=== PATIENT | male | born 1945 | race African-American/Black ===

== ENCOUNTER 2019-02-24 18:56 | Inpatient (IN) | payer OTHER ==
[~2019-02-24] VITALS: Ht 172.7 cm; Wt 70.8 kg
[2019-02-24] MEDS ORDERED: INSU100V8 SQ (19:36)
[2019-02-24] MEDS ORDERED: TAMS0.4C97 PO (19:36)
[2019-02-24] MEDS ORDERED: TRAZ-125 PO (19:36)
[2019-02-24] MEDS ORDERED: DONE10TA14 PO (19:36)
[2019-02-24] MEDS ORDERED: SERT100T PO (19:36)
[2019-02-24] MEDS ORDERED: SENN8.6T88 PO (19:36)
[2019-02-24] MEDS ORDERED: OLAN5TAB9 PO (19:36)
[2019-02-24] MEDS ORDERED: INSU100C4 SQ (19:36)
[2019-02-24] MEDS ORDERED: ENOX40DI SQ (19:36)
[2019-02-24] MEDS ORDERED: FINA5TAB4 PO (19:36)
[2019-02-24] MEDS ORDERED: HALO5TAB PO (19:36)
[2019-02-24] MEDS ORDERED: METO-239 PO (19:36)
[2019-02-24] MEDS ORDERED: DOCU50LI PO (19:36)
[2019-02-24] MEDS ORDERED: METHYL SALICYLATE/MENTHOL TOPICAL OINTMENT 57GM TUBE. TP PRN (19:45)
[2019-02-24] MEDS ORDERED: DEXTROSE 50% 25 GM / 50ML DISP.SYRIN. IV PRN (19:45)
[2019-02-24] MEDS ORDERED: MAG HYDROX/AL HYDROX/SIMETH 30 ML ORAL.SUSP PO PRN (19:45)
[2019-02-24] MEDS ORDERED: ACETAMINOPHEN 325 MG TABLET PO PRN (19:45)
[2019-02-24] MEDS ORDERED: MAGNESIUM HYDROXIDE 2,400 MG/30 ML ORAL.SUSP. PO PRN (19:45)
[2019-02-24 21:14] LABS: BASO % 1 % (0-3); EOS # 0.3 x10^3/uL (0.0-0.7); EOS % 4 % (0-3); HEMATOCRIT 34.3 % (39.0-53.0); HEMOGLOBIN 11.1 g/dL (13.0-17.5); LYMPH # 1.8 x10^3/uL (1.0-4.8); LYMPH % 25 % (24-48); MEAN CORPUSCULAR HEMOGLOBIN 29 pg (25-35); MEAN CORPUSCULAR HGB CONC 33 g/dL (31-37); MEAN CORPUSCULAR VOLUME 89 fL (79-100); MONO # 0.6 x10^3/uL (0.0-1.1); MONO % 8 % (0-9); NEUT # 4.7 x10^3uL (1.8-7.7); NEUT % 63 % (31-73); PLATELET COUNT 218 x10^3/uL (140-400); RED BLOOD COUNT 3.86 x10^6/uL (4.30-5.70); RED CELL DISTRIBUTION WIDTH 13.7 % (11.5-14.5); WHITE BLOOD COUNT 7.4 x10^3/uL (4.0-11.0)
[2019-02-24 21:35] LABS: ALBUMIN 2.8 g/dL (3.4-5.0); ALBUMIN/GLOBULIN RATIO 0.6 (1.0-1.7); CALCIUM 9.1 mg/dL (8.5-10.1); CREATININE 1.6 mg/dL (0.7-1.3); GFR 51.5; MAGNESIUM 1.8 mg/dL (1.8-2.4); POTASSIUM 4.3 mmol/L (3.5-5.1); TOTAL BILIRUBIN 0.2 mg/dL (0.2-1.0); TOTAL PROTEIN 7.4 g/dL (6.4-8.2)
[2019-02-24] MEDS: traZODone 100 MG TABLET. PO SCH (21:35)
[2019-02-24] MEDS: DONEPEZIL HCL 10 MG TABLET PO SCH (21:36)
[2019-02-24] MEDS: TAMSULOSIN 0.4 MG CAP.ER.24H. PO SCH (21:36)
[2019-02-24] MEDS: OLANZapine 5 MG TABLET PO SCH (21:36)
[2019-02-24] MEDS: ENOXAPARIN 40 MG/0.4 ML SYRINGE. SQ SCH (21:36)
--- NOTE | 2019-02-24 22:14 | EKG ---
[address] [address] Test Date: 2019-02-24 Test Time: 22:50:44 Pat Name: POONAM JOHNS Department: Room: [address] [place] [address] Gender: M [employer]: : 1945 Requested By: MAURA SCHWAB Order Number: [id number] Reading MD: Measurements Intervals [place] Rate: 71 P: 66 WV: 186 QRS: 44 QRSD: 84 T: 49 QT: 386 QTc: 420 Interpretive Statements SINUS RHYTHM NORMAL ECG RI6.02 No previous ECG available for comparison
--- NOTE | 2019-02-24 23:24 | PDOC ---
Exam Note: Shon Note: Please also refer to the separate dictated note~for this date of service dictated separately. Discussed the patient with Nursing staff reviewed the chart.~Reviewed interim history and current functioning. Reviewed vital signs,~Labs/ Radiology~and current medications noted below. Continue current treatment with the changes noted in the dictated addendum note Assessment: Labs: Laboratory Tests Test 02/24/19 19:24 02/24/19 20:45 Glucose (Fingerstick) 236 mg/dL (70-99) H White Blood Count 7.4 x10^3/uL (4.0-11.0) Red Blood Count 3.86 x10^6/uL (4.30-5.70) L Hemoglobin 11.1 g/dL (13.0-17.5) L Hematocrit 34.3 % (39.0-53.0) L Mean Corpuscular Volume 89 fL (79-100) Mean Corpuscular Hemoglobin 29 pg (25-35) Mean Corpuscular Hemoglobin Concent 33 g/dL (31-37) Red Cell Distribution Width 13.7 % (11.5-14.5) Platelet Count 218 x10^3/uL (140-400) Neutrophils (%) (Auto) 63 % (31-73) Lymphocytes (%) (Auto) 25 % (24-48) Monocytes (%) (Auto) 8 % (0-9) Eosinophils (%) (Auto) 4 % (0-3) H Basophils (%) (Auto) 1 % (0-3) Neutrophils # (Auto) 4.7 x10^3uL (1.8-7.7) Lymphocytes # (Auto) 1.8 x10^3/uL (1.0-4.8) Monocytes # (Auto) 0.6 x10^3/uL (0.0-1.1) Eosinophils # (Auto) 0.3 x10^3/uL (0.0-0.7) Basophils # (Auto) 0.0 x10^3/uL (0.0-0.2) Sodium Level 134 mmol/L (136-145) L Potassium Level 4.3 mmol/L (3.5-5.1) Chloride Level 100 mmol/L (98-107) Carbon Dioxide Level 29 mmol/L (21-32) Anion Gap 5 (6-14) L Blood Urea Nitrogen 28 mg/dL (8-26) H Creatinine 1.6 mg/dL (0.7-1.3) H Estimated GFR (Cockcroft-Gault) 51.5 BUN/Creatinine Ratio 18 (6-20) Glucose Level 360 mg/dL (70-99) H Calcium Level 9.1 mg/dL (8.5-10.1) Magnesium Level 1.8 mg/dL (1.8-2.4) Total Bilirubin 0.2 mg/dL (0.2-1.0) Aspartate Amino Transferase (AST) 17 U/L (15-37) Alanine Aminotransferase (ALT) 16 U/L (16-63) Alkaline Phosphatase 108 U/L (46-116) Total Protein 7.4 g/dL (6.4-8.2) Albumin 2.8 g/dL (3.4-5.0) L Albumin/Globulin Ratio 0.6 (1.0-1.7) L Current Medications: Meds: Current Medications Medications (Trade) Dose Ordered Sig/Deb Route PRN Reason Start Time Stop Time Status Last Admin Dose Admin Enoxaparin Sodium (Lovenox 40mg Syringe) 40 mg HS SQ 02/24/19 21:00 02/24/19 21:36 Olanzapine (ZyPREXA) 5 mg BID PO 02/24/19 21:00 02/24/19 21:36 Tamsulosin HCl (Flomax) 0.4 mg BID PO 02/24/19 21:00 02/24/19 21:36 Trazodone HCl (Desyrel) 100 mg HS PO 02/24/19 21:00 02/24/19 21:35 Donepezil HCl (Aricept) 10 mg HS PO 02/24/19 21:00 02/24/19 21:36 I have reviewed the current psychotropics carefully including drug interactions. Risk benefit ratio favors no change other than as noted in my dictated progress note. TYLOR MONACO MD Feb 24, 2019 23:24
[2019-02-25 00:59] VITALS: BP 144/83
[2019-02-25 06:09] VITALS: BP 160/81
[2019-02-25] MEDS: INSULIN LISPRO 300 UNITS/3 ML VIAL. SQ SCH ×3 (08:00→17:22)
[2019-02-25] MEDS ORDERED: FLU VAX QS 2019-20 (36MOS+)/PF 0.5 ML SYRINGE. VAX IM ONE (09:00)
[2019-02-25] MEDS: INSULIN GLARGINE SYRINGE. SQ SCH (09:12)
[2019-02-25] MEDS: NICOTINE 14MG PATCH. TD SCH (09:13)
[2019-02-25] MEDS: DOCUSATE 100 MG/10 ML SOLUTION. PO SCH (09:13)
[2019-02-25] MEDS: OLANZapine 5 MG TABLET PO SCH ×2 (09:14→20:16)
[2019-02-25] MEDS: TAMSULOSIN 0.4 MG CAP.ER.24H. PO SCH ×2 (09:14→20:16)
[2019-02-25] MEDS: SERTRALINE 100 MG TABLET. PO SCH (09:14)
[2019-02-25] MEDS: SENNOSIDES 8.6 MG TABLET PO SCH (09:15)
[2019-02-25] MEDS: METOPROLOL SUCC 24HR ER 25 MG TAB.ER.24H. PO SCH (09:15)
[2019-02-25] MEDS: FINASTERIDE 5 MG TABLET PO SCH (09:15)
[2019-02-25 14:33] LABS: BILIRUBIN,URINE NEG (NEG); CLARITY,URINE CLEAR; COLOR,URINE YELLOW; GLUCOSE,URINE 500 mg/dL (NEG)
[2019-02-25 14:34] LABS: BACTERIA,URINE 0 /HPF (0-FEW); NITRITE,URINE NEG (NEG); SQUAMOUS EPITHELIAL CELL,UR OCC /LPF; UROBILINOGEN,URINE 0.2 mg/dL (0.2 mg/dL); WBC,URINE OCC /HPF (0-4)
[2019-02-25] MEDS: HALOPERIDOL 5 MG TABLET PO PRN (15:59)
[2019-02-25 16:13] VITALS: BP 169/89
[2019-02-25 17:59] LABS: THYROXINE 6.2 ug/dL (4.5-12.0)
[2019-02-25 18:53] LABS: THYROID STIM HORMONE (TSH) 3.668 uIU/mL (0.358-3.740)
[2019-02-25] MEDS: ENOXAPARIN 40 MG/0.4 ML SYRINGE. SQ SCH (20:15)
[2019-02-25] MEDS: carBAMazepine 200 MG TABLET PO SCH (20:15)
[2019-02-25] MEDS: traZODone 100 MG TABLET. PO SCH (20:16)
[2019-02-25] MEDS: DONEPEZIL HCL 10 MG TABLET PO SCH (20:16)
--- NOTE | 2019-02-25 20:42 | PDOC ---
Exam Note: Shon Note: Please also refer to the separate dictated note~for this date of service dictated separately.~Patient seen individually. Discussed the patient with Nursing staff reviewed the chart.~Reviewed interim history and current functioning. Reviewed vital signs,~Labs/ Radiology~and current medications noted below. Continue current treatment with the changes noted in the dictated addendum note Assessment: Vital Signs/I&O: Vital Signs Date Time Temp Pulse Resp B/P (MAP) Pulse Ox O2 Delivery O2 Flow Rate FiO2 02/25/19 16:13 98.4 78 20 169/89 (115) 97 I & O 02/24/19 02/24/19 02/25/19 15:00 23:00 07:00 Intake Total 0 ml Balance 0 ml Labs: Laboratory Tests Test 02/24/19 20:45 02/25/19 07:46 02/25/19 12:02 02/25/19 13:45 White Blood Count 7.4 x10^3/uL (4.0-11.0) Red Blood Count 3.86 x10^6/uL (4.30-5.70) L Hemoglobin 11.1 g/dL (13.0-17.5) L Hematocrit 34.3 % (39.0-53.0) L Mean Corpuscular Volume 89 fL (79-100) Mean Corpuscular Hemoglobin 29 pg (25-35) Mean Corpuscular Hemoglobin Concent 33 g/dL (31-37) Red Cell Distribution Width 13.7 % (11.5-14.5) Platelet Count 218 x10^3/uL (140-400) Neutrophils (%) (Auto) 63 % (31-73) Lymphocytes (%) (Auto) 25 % (24-48) Monocytes (%) (Auto) 8 % (0-9) Eosinophils (%) (Auto) 4 % (0-3) H Basophils (%) (Auto) 1 % (0-3) Neutrophils # (Auto) 4.7 x10^3uL (1.8-7.7) Lymphocytes # (Auto) 1.8 x10^3/uL (1.0-4.8) Monocytes # (Auto) 0.6 x10^3/uL (0.0-1.1) Eosinophils # (Auto) 0.3 x10^3/uL (0.0-0.7) Basophils # (Auto) 0.0 x10^3/uL (0.0-0.2) Sodium Level 134 mmol/L (136-145) L Potassium Level 4.3 mmol/L (3.5-5.1) Chloride Level 100 mmol/L (98-107) Carbon Dioxide Level 29 mmol/L (21-32) Anion Gap 5 (6-14) L Blood Urea Nitrogen 28 mg/dL (8-26) H Creatinine 1.6 mg/dL (0.7-1.3) H Estimated GFR (Cockcroft-Gault) 51.5 BUN/Creatinine Ratio 18 (6-20) Glucose Level 360 mg/dL (70-99) H Calcium Level 9.1 mg/dL (8.5-10.1) Magnesium Level 1.8 mg/dL (1.8-2.4) Iron Level 59 ug/dL (65-175) L Total Iron Binding Capacity 268 ug/dL (250-450) Iron Saturation 22 % (15-34) Total Bilirubin 0.2 mg/dL (0.2-1.0) Aspartate Amino Transferase (AST) 17 U/L (15-37) Alanine Aminotransferase (ALT) 16 U/L (16-63) Alkaline Phosphatase 108 U/L (46-116) Total Protein 7.4 g/dL (6.4-8.2) Albumin 2.8 g/dL (3.4-5.0) L Albumin/Globulin Ratio 0.6 (1.0-1.7) L Triglycerides Level 150 mg/dL (0-150) Cholesterol Level 117 mg/dL (0-200) LDL Cholesterol, Calculated 51 mg/dL (0-100) VLDL Cholesterol, Calculated 30 mg/dL (0-40) Non-HDL Cholesterol Calculated 81 mg/dL (0-129) HDL Cholesterol 36 mg/dL (40-60) L Cholesterol/HDL Ratio 3.0 Vitamin B12 Level 600 pg/mL (247-911) 25-Hydroxy Vitamin D Total 37.9 ng/mL (30-100) Thyroid Stimulating Hormone (TSH) 3.668 uIU/mL (0.358-3.740) Thyroxine (T4) 6.2 ug/dL (4.5-12.0) Total Triiodothyronine (TT3) 97 ng/dL (71-180) Treponema pallidum Antibody Nonreactive (Nonreactive) Glucose (Fingerstick) 149 mg/dL (70-99) H 313 mg/dL (70-99) H Urine Collection Type Unknown Urine Color Yellow Urine Clarity Clear Urine pH 6.0 Urine Specific [place] 1.020 Urine Protein Trace (NEG-TRACE) Urine Glucose (UA) 500 mg/dL (NEG) Urine Ketones (Stick) Neg mg/dL (NEG) Urine Blood Neg (NEG) Urine Nitrite Neg (NEG) Urine Bilirubin Neg (NEG) Urine Urobilinogen Dipstick 0.2 mg/dL (0.2 mg/dL) Urine Leukocyte Esterase Neg (NEG) Urine RBC 1-2 /HPF (0-2) Urine WBC Occ /HPF (0-4) Urine Squamous Epithelial Cells Occ /LPF Urine Bacteria 0 /HPF (0-FEW) Test 02/25/19 17:18 02/25/19 19:10 Glucose (Fingerstick) 308 mg/dL (70-99) H 390 mg/dL (70-99) H Current Medications: Meds: Current Medications Medications (Trade) Dose Ordered Sig/Deb Route PRN Reason Start Time Stop Time Status Last Admin Dose Admin Docusate Sodium (Colace Solution) 50 mg DAILY PO 02/25/19 09:00 02/25/19 09:13 Enoxaparin Sodium (Lovenox 40mg Syringe) 40 mg HS SQ 02/24/19 21:00 02/25/19 20:15 Finasteride (Proscar) 5 mg DAILY PO 02/25/19 09:00 02/25/19 09:15 Insulin Glargine (Lantus Syringe) 10 unit DAILY SQ 02/25/19 09:00 02/25/19 09:12 Metoprolol Succinate (Toprol Xl) 12.5 mg DAILY PO 02/25/19 09:00 02/25/19 09:15 Olanzapine (ZyPREXA) 5 mg BID PO 02/24/19 21:00 02/25/19 20:16 Sennosides (Senna) 8.6 mg DAILY PO 02/25/19 09:00 02/25/19 09:15 Sertraline HCl (Zoloft) 200 mg DAILY PO 02/25/19 09:00 02/25/19 09:14 Tamsulosin HCl (Flomax) 0.4 mg BID PO 02/24/19 21:00 02/25/19 20:16 Trazodone HCl (Desyrel) 100 mg HS PO 02/24/19 21:00 02/25/19 20:16 Donepezil HCl (Aricept) 10 mg HS PO 02/24/19 21:00 02/25/19 20:16 Insulin Human Lispro (HumaLOG) 0-5 UNITS TIDWMEALS SQ 02/25/19 08:00 02/25/19 17:22 Nicotine (Nicoderm Cq 14mg) 1 patch DAILY TD 02/25/19 09:00 02/25/19 09:13 Influenza Virus Vaccine Quadrival (Afluria Quad 2019-20 (3yr Up) Syringe) 0.5 ml ONCE ONCE VAX IM 02/25/19 09:00 02/25/19 09:01 DC 02/25/19 09:18 Carbamazepine (TEGretol) 200 mg HS PO 02/25/19 21:00 02/25/19 20:15 I have reviewed the current psychotropics carefully including drug interactions. Risk benefit ratio favors no change other than as noted in my dictated progress note. TYLOR MONACO MD Feb 25, 2019 20:42
[2019-02-25] MEDS ORDERED: MIRTAZAPINE 7.5 MG TABLET. PO SCH (21:00)
[2019-02-26 01:06] LABS: HEMOGLOBIN A1C 13.2 % (4.8-5.6)
[2019-02-26 04:56] VITALS: BP 146/72
[2019-02-26] MEDS: INSULIN LISPRO 300 UNITS/3 ML VIAL. SQ SCH ×3 (08:00→17:00)
[2019-02-26] MEDS ORDERED: SERTRALINE 25 MG TABLET. PO SCH (09:00)
[2019-02-26] MEDS: TAMSULOSIN 0.4 MG CAP.ER.24H. PO SCH ×2 (09:27→19:55)
[2019-02-26] MEDS: SENNOSIDES 8.6 MG TABLET PO SCH (09:27)
[2019-02-26] MEDS: FINASTERIDE 5 MG TABLET PO SCH (09:27)
[2019-02-26] MEDS: DOCUSATE 100 MG/10 ML SOLUTION. PO SCH (09:27)
[2019-02-26] MEDS: METOPROLOL SUCC 24HR ER 25 MG TAB.ER.24H. PO SCH (09:27)
[2019-02-26] MEDS: SERTRALINE 100 MG TABLET. PO SCH (09:27)
[2019-02-26] MEDS: NICOTINE 14MG PATCH. TD SCH (09:28)
[2019-02-26] MEDS: OLANZapine 5 MG TABLET PO SCH ×2 (09:28→19:55)
[2019-02-26] MEDS: INSULIN GLARGINE SYRINGE. SQ SCH ×2 (09:32→19:59)
[2019-02-26 16:07] VITALS: BP 163/73
[2019-02-26] MEDS ORDERED: DEXTROSE 50% 25 GM / 50ML DISP.SYRIN. IV PRN (17:00)
[2019-02-26] MEDS ORDERED: INSULIN LISPRO 300 UNITS/3 ML VIAL. SQ ONE (17:15)
--- NOTE | 2019-02-26 17:54 | HP ---
ADMIT DATE: 02/24/2019 PSYCHIATRIC ADMISSION HISTORY/EVALUATION This late entry February 24 covers elements not covered in my initial note. I met with the patient evening of February 24. Discussed with nursing staff, reviewed the chart, previously discussed with Adelina Quarles, complaints coordinator. I had dictated admission note on the patient, admission history and psychiatric evaluation, but I am unable to track it in the electronic medical records and I am re-dictating it. IDENTIFYING DATA: The patient is a 73-year-old male who lives [facility] [place] and was referred to us by the [facility] in [place] on account of an exacerbation of his schizophrenia, chronic, undifferentiated type. He was delusional, grandiose, agitated, verbally aggressive, disruptive. He was unmanageable, had failed outpatient psychiatric interventions resulting in this referral. He resides at [facility] in [place]. CHIEF COMPLAINT: "I need to go home." HISTORY OF PRESENT ILLNESS: The patient has a long history of schizoaffective disorder, bipolar type versus schizophrenia. He has been residing at the [facility] and doing reasonably well until recently when he has become extremely psychotic, agitated, restless, verbally aggressive, disruptive. He has had sleep and appetite changes, has failed outpatient psychiatric interventions. No active suicidal or homicidal ideation. PAST PSYCHIATRIC HISTORY: As above. MEDICAL HISTORY: Chronic hepatitis C, inactive TB, hypertension, phimosis, hyperlipidemia, diabetes mellitus, COPD, anemia, chronic kidney disease, neurocognitive disorder. Diet is carb control. Takes medications whole. Ambulates with walker. UA on February 25 was negative. CODE STATUS: Full code. DRUG ALLERGIES: Negative. ACCU-CHEKS: a.c. and at bedtime. CURRENT PSYCHOTROPICS: Aricept 10 mg a day, Haldol 5 mg q. 4 hours p.r.n., Zyprexa 5 mg b.i.d., Zoloft 200 mg a day, trazodone 100 mg at bedtime for insomnia. FAMILY HISTORY: Noncontributory. SOCIAL HISTORY: No alcohol or drug abuse history will be inquired further. No physical, sexual or elder abuse history. He is not known to be a perpetrator. REACTION TO HOSPITALIZATION: The patient accepting of it. ASSETS: He has a guardian who facilitated this hospitalization via the [facility]. MENTAL STATUS EXAMINATION: The patient was seen individually evening of February 24, shortly after he arrived in the unit. He is oriented to himself and situation. Speech has some latency, coherent, often responses monosyllabic. Abstraction fair. Computation impaired. Language function intact. Attention span short. Mood and affect withdrawn. He is paranoid, suspicious, inattentive, distractible. LABORATORY DATA: Reviewed. IMPRESSION: Schizoaffective disorder, bipolar type, mixed with psychotic features, schizophrenia, chronic, undifferentiated with acute exacerbation with psychotic features; anxiety disorder, unspecified; mild cognitive impairment. Rest as above. PLAN: Admit to Geropsychiatry Unit at [facility]. I will see the patient daily individually from a psychiatric standpoint. Medical followup with Dr. Acevedo. We will avoid using Depakote as a mood stabilizer given his positive hepatitis C. We did consider lithium, but for now we will start Tegretol 200 mg p.o. at bedtime for 3 days. Check CBC, CMP, valproic acid level in 3 days. Start Zyprexa 2.5 mg q. 2 hours p.r.n. psychosis, agitation, max 20 mg in 24 hours. Consider [address]odon in place of Zyprexa depending on his progress. Rest unchanged for now. ESTIMATED LENGTH OF STAY: 10-12 days. DISPOSITION: Plan is back to [facility] when stable. MAN Maggy MONACO MD DR: CHERELLE/kiko JOB#: [id number] / [id number]
[2019-02-26] MEDS: DONEPEZIL HCL 10 MG TABLET PO SCH (19:55)
[2019-02-26] MEDS: traZODone 100 MG TABLET. PO SCH (19:55)
[2019-02-26] MEDS: carBAMazepine 200 MG TABLET PO SCH (19:55)
--- NOTE | 2019-02-26 21:33 | PDOC ---
Exam Note: Shon Note: Please also refer to the separate dictated note~for this date of service dictated separately.~Patient seen individually. Discussed the patient with Nursing staff reviewed the chart.~Reviewed interim history and current functioning. Reviewed vital signs,~Labs/ Radiology~and current medications noted below. Continue current treatment with the changes noted in the dictated addendum note Assessment: Vital Signs/I&O: Vital Signs Date Time Temp Pulse Resp B/P (MAP) Pulse Ox O2 Delivery O2 Flow Rate FiO2 02/26/19 16:07 97.9 74 16 163/73 (103) 99 Room Air I & O 02/25/19 02/25/19 02/26/19 15:00 23:00 07:00 Intake Total 720 ml 240 ml Balance 720 ml 240 ml Labs: Laboratory Tests Test 02/26/19 07:05 02/26/19 11:54 02/26/19 16:31 02/26/19 19:22 Glucose (Fingerstick) 270 mg/dL (70-99) H 444 mg/dL (70-99) H 507 mg/dL (70-99) *H 421 mg/dL (70-99) H Current Medications: Meds: Current Medications Medications (Trade) Dose Ordered Sig/Deb Route PRN Reason Start Time Stop Time Status Last Admin Dose Admin Insulin Glargine (Lantus Syringe) 20 unit BID SQ 02/26/19 21:00 02/26/19 19:59 Insulin Human Lispro (HumaLOG) 20 units 1X ONCE SQ 02/26/19 17:15 02/26/19 17:16 DC 02/26/19 17:41 I have reviewed the current psychotropics carefully including drug interactions. Risk benefit ratio favors no change other than as noted in my dictated progress note. Diagnosis: Problems: (1) Schizoaffective disorder, mixed type (2) Bipolar disorder with psychotic features (3) Chronic undifferentiated schizophrenia (4) Mild cognitive impairment (5) Anxiety disorder, unspecified TYLOR MONACO MD Feb 26, 2019 21:33
--- NOTE | 2019-02-26 22:59 | PN ---
DATE: 02/25/2019 This late entry 02/25/2019 covers elements not covered in my initial note. SUBJECTIVE: I met with the patient evening of 02/25/2019. The patient slept 9 hours previous night. He has appeared more lucid during the day, but previous evening, he was having active hallucinations, quite agitated after lunch. He is fixated, obsessed about being discharged and I addressed this with him at length during his visit in the evening in his room. REVIEW OF SYSTEMS: Positive for some tiredness. No CV, , pulmonary, eye system symptoms on review. MENTAL STATUS EXAM: Oriented to himself and situation. Speech has some latency, coherent. Abstraction fair, computation impaired, language function intact. Mood and affect remain somewhat withdrawn, labile. He remains paranoid, psychotic. He does have a guardian who has facilitated this hospitalization. IMPRESSION: Schizoaffective disorder, bipolar type, mixed with psychotic features. Rest unchanged. PLAN: Start Tegretol 200 mg at bedtime for 3 days, then check CBC, CMP, valproic acid level to reach therapeutic level. We are avoiding Depakote given his hepatitis C. We will maintain Aricept, Zoloft and trazodone for now along with Zyprexa 5 mg b.i.d., but we may consider changing this to Geodon depending on how he does. We will also add Zyprexa 2.5 mg q. 2 hours p.r.n. psychosis, agitation, max 20 mg in 24 hours. TYLOR MONACO MD DR: CHERELLE/kiko JOB#: [id number] / [id number]
--- NOTE | 2019-02-26 23:17 | CONS ---
DATE OF CONSULTATION: 02/26/2019 REASON FOR CONSULTATION: Medical management. HISTORY OF PRESENT ILLNESS: The patient is a 73-year-old -[place] male patient who was admitted from the [facility] on account of being delusional, grandiose, agitated, verbally aggressive, all this in a background of schizophrenia, unspecified with acute exacerbation. Medically, the patient is known to have chronic hepatitis C, hypertension, hyperlipidemia, type 2 diabetes, chronic obstructive pulmonary disease, anemia, depression, chronic kidney disease stage 3. He is also known to have phimosis and inactive tuberculosis. PAST SURGICAL HISTORY: Significant for tonsillectomy, according to the patient's account. ALLERGIES: He has no known drug allergies. MEDICATIONS: He is currently on following medications: He is on Aricept 10 mg at bedtime, tamsulosin or Flomax 0.4 mg twice a day, Lovenox 40 mg subcutaneously once a day, metoprolol succinate 12.5 mg daily, sertraline 200 mg at bedtime and trazodone 100 mg at bedtime, haloperidol 5 mg every 4 hours, olanzapine 5 mg twice a day, Colace 50 mg daily. He is on Senna 1 tablet once a day and he is on NovoLog insulin as insulin sliding scale. He also on Lantus 10 units subcutaneously daily. He is on finasteride 5 mg daily. SOCIAL HISTORY: Apparently he is , has 2 daughters and 2 sons. He continued to smoke, does not drink alcohol and currently retired. PHYSICAL EXAMINATION: GENERAL: When I examined him this afternoon, the patient was little pale and cachectic, but no jaundice, cyanosis. No lymphadenopathy, no thyromegaly. No jugular venous distention. No limb edema. VITAL SIGNS: Her heart rate was 74, blood pressure was 163/73, temperature was 97.9, respiratory rate was 16, and oxygen saturation was 99%. HEAD, EYES, EARS, NOSE AND THROAT: Showed normocephalic, atraumatic. NECK: Supple. HEART: Showed normal first and second heart sounds. No gallop, rub or murmur. CHEST: Shows central trachea, equally reduced expansion, reduced air entry, vesicular sounds. I could not really appreciate any crepitation or rhonchi. ABDOMEN: Slightly distended, soft, nontender. NEUROLOGIC: He was awake, alert, responding appropriately. All cranial nerves intact. EXTREMITIES: He moves extremities without difficulty, ambulates with a walker. LABORATORY DATA: This admission showed a white cell count 7400, hemoglobin 11, hematocrit 34, MCV 89 and platelet count of 218,000. His serum sodium was 134, potassium 4.3, chloride 100, bicarbonate 29, anion gap of 5, BUN 28, creatinine 1.6, estimated GFR was 51 mL per minute. Her glucose was 360, calcium was 9.1, magnesium was 1.8. Serum iron was 59, TIBC was 268. Iron saturation was 22. Total bilirubin, AST, ALT, alkaline phosphatase were normal. Total protein was 7.4, albumin was 2.8. Serum triglycerides was 150, total cholesterol was 117, LDL cholesterol was 51, the LDL was 30, HDL was 56 and the ratio was 3. His TSH, total T4 and total 3 are all within normal limits. His B12 was 600 pg/mL and 25-hydroxy vitamin D was normal at 37.9. His urinalysis was essentially unremarkable and his Treponema pallidum antibodies unreactive. His hemoglobin A1c was 13.2%. ASSESSMENT AND PLAN: In summary, this is a 73-year-old -[place]omin[place] male patient who was transferred to this facility from [facility] on account of being delusional, grandiose, agitated, verbally aggressive, all this in a background of schizophrenia with acute exacerbation. Medically, he clearly has poorly controlled type 2 diabetes mellitus with hemoglobin A1c of 13.2%. He has stage 3 chronic kidney disease. He has normochromic normocytic anemia, hypertension, hyperlipidemia as well as chronic hepatitis C, although his liver enzymes are well within normal range. My plan is obviously to adjust his insulin given that his blood sugar values were extremely high between 200-500 and therefore we increased his Lantus to 20 units twice a day and increase his insulin sliding scale before meals to the highest dose available. Once we have at least the 24-48 hours profile of his blood sugar we can start him on a fixed dose or scheduled insulin before meals. Other medical problems include benign prostatic hypertrophy for which he is on Flomax and finasteride. I am not sure why he is on Lovenox as he is ambulatory and there is nothing in the history to suggest that he has any deep vein thrombosis or pulmonary emboli. I would probably discontinue that. MAURA SCHWAB MD DR: Jaime JOB#: [id number] / [id number]
[2019-02-27 04:52] VITALS: BP 164/76
[2019-02-27] MEDS: FINASTERIDE 5 MG TABLET PO SCH (08:23)
[2019-02-27] MEDS: NICOTINE 14MG PATCH. TD SCH (08:23)
[2019-02-27] MEDS: SERTRALINE 100 MG TABLET. PO SCH (08:24)
[2019-02-27] MEDS: SENNOSIDES 8.6 MG TABLET PO SCH (08:24)
[2019-02-27] MEDS: TAMSULOSIN 0.4 MG CAP.ER.24H. PO SCH ×2 (08:24→20:01)
[2019-02-27] MEDS: OLANZapine 5 MG TABLET PO SCH ×2 (08:24→20:01)
[2019-02-27] MEDS: METOPROLOL SUCC 24HR ER 25 MG TAB.ER.24H. PO SCH (08:25)
[2019-02-27] MEDS: DOCUSATE 100 MG/10 ML SOLUTION. PO SCH (08:25)
[2019-02-27] MEDS: INSULIN LISPRO 300 UNITS/3 ML VIAL. SQ SCH ×3 (08:28→17:14)
[2019-02-27] MEDS: INSULIN GLARGINE SYRINGE. SQ SCH ×2 (08:30→20:00)
[2019-02-27] MEDS ORDERED: INSULIN GLARGINE SYRINGE. SQ SCH ×2 (09:00→16:45)
[2019-02-27] MEDS ORDERED: INSULIN LISPRO 300 UNITS/3 ML VIAL. SQ ONE (12:15)
[2019-02-27] MEDS: OLANZapine 2.5 MG TABLET PO PRN (14:33)
[2019-02-27 16:09] VITALS: BP 148/69
[2019-02-27] MEDS: traZODone 100 MG TABLET. PO SCH (20:01)
[2019-02-27] MEDS: carBAMazepine 200 MG TABLET PO SCH (20:01)
[2019-02-27] MEDS: DONEPEZIL HCL 10 MG TABLET PO SCH (20:01)
--- NOTE | 2019-02-27 21:28 | PDOC ---
Exam Note: Shon Note: Please also refer to the separate dictated note~for this date of service dictated separately.~Patient seen individually. Discussed the patient with Nursing staff reviewed the chart.~Reviewed interim history and current functioning. Reviewed vital signs,~Labs/ Radiology~and current medications noted below. Continue current treatment with the changes noted in the dictated addendum note Assessment: Vital Signs/I&O: Vital Signs Date Time Temp Pulse Resp B/P (MAP) Pulse Ox O2 Delivery O2 Flow Rate FiO2 02/27/19 16:09 97.5 89 16 148/69 (95) 96 02/26/19 16:07 Room Air I & O 02/26/19 02/26/19 02/27/19 14:59 22:59 06:59 Intake Total 600 ml 240 ml 240 ml Balance 600 ml 240 ml 240 ml Labs: Laboratory Tests Test 02/27/19 07:20 02/27/19 11:18 02/27/19 16:20 02/27/19 19:34 Glucose (Fingerstick) 205 mg/dL (70-99) H 371 mg/dL (70-99) H 403 mg/dL (70-99) H 204 mg/dL (70-99) H Current Medications: Meds: Current Medications Medications (Trade) Dose Ordered Sig/Deb Route PRN Reason Start Time Stop Time Status Last Admin Dose Admin Insulin Human Lispro (HumaLOG) 10 units 1X ONCE SQ 02/27/19 12:15 02/27/19 12:27 DC 02/27/19 12:13 Insulin Human Lispro (HumaLOG) 12 units TIDAC SQ 02/27/19 16:45 02/27/19 17:14 Insulin Glargine (Lantus Syringe) 30 unit BID SQ 02/27/19 21:00 02/27/19 20:00 I have reviewed the current psychotropics carefully including drug interactions. Risk benefit ratio favors no change other than as noted in my dictated progress note. Diagnosis: Problems: (1) Chronic undifferentiated schizophrenia (2) Mild cognitive impairment (3) Schizoaffective disorder, mixed type (4) Anxiety disorder, unspecified (5) Bipolar disorder with psychotic features TYLOR MONACO MD Feb 27, 2019 21:28
[2019-02-28 05:33] VITALS: BP 137/73
[2019-02-28] MEDS: SERTRALINE 100 MG TABLET. PO SCH (09:45)
[2019-02-28] MEDS: TAMSULOSIN 0.4 MG CAP.ER.24H. PO SCH ×2 (09:45→20:10)
[2019-02-28] MEDS: METOPROLOL SUCC 24HR ER 25 MG TAB.ER.24H. PO SCH (09:46)
[2019-02-28] MEDS: OLANZapine 5 MG TABLET PO SCH ×2 (09:46→20:10)
[2019-02-28] MEDS: SENNOSIDES 8.6 MG TABLET PO SCH (09:46)
[2019-02-28] MEDS: NICOTINE 14MG PATCH. TD SCH (09:47)
[2019-02-28] MEDS: FINASTERIDE 5 MG TABLET PO SCH (09:47)
[2019-02-28] MEDS: DOCUSATE 100 MG/10 ML SOLUTION. PO SCH (09:47)
[2019-02-28] MEDS: INSULIN LISPRO 300 UNITS/3 ML VIAL. SQ SCH ×3 (09:50→17:21)
[2019-02-28] MEDS: INSULIN GLARGINE SYRINGE. SQ SCH ×2 (09:51→20:11)
[2019-02-28] MEDS: OLANZapine 2.5 MG TABLET PO PRN ×2 (11:07→13:40)
[2019-02-28 15:35] VITALS: BP 178/73
[2019-02-28] MEDS: DONEPEZIL HCL 10 MG TABLET PO SCH (20:10)
[2019-02-28] MEDS: traZODone 100 MG TABLET. PO SCH (20:10)
[2019-02-28] MEDS: carBAMazepine 200 MG TABLET PO SCH (20:10)
--- NOTE | 2019-02-28 21:04 | PDOC ---
Exam Note: Shon Note: Please also refer to the separate dictated note~for this date of service dictated separately.~Patient seen individually. Discussed the patient with Nursing staff reviewed the chart.~Reviewed interim history and current functioning. Reviewed vital signs,~Labs/ Radiology~and current medications noted below. Continue current treatment with the changes noted in the dictated addendum note Assessment: Vital Signs/I&O: Vital Signs Date Time Temp Pulse Resp B/P (MAP) Pulse Ox O2 Delivery O2 Flow Rate FiO2 02/28/19 15:35 97.3 67 18 178/73 (108) 9 02/26/19 16:07 Room Air I & O 02/27/19 02/27/19 02/28/19 14:59 22:59 06:59 Intake Total 600 ml 240 ml 240 ml Balance 600 ml 240 ml 240 ml Labs: Laboratory Tests Test 02/28/19 07:35 02/28/19 09:42 02/28/19 11:18 02/28/19 16:57 Glucose (Fingerstick) 66 mg/dL (70-99) L 275 mg/dL (70-99) H 244 mg/dL (70-99) H 217 mg/dL (70-99) H Test 02/28/19 19:20 Glucose (Fingerstick) 276 mg/dL (70-99) H Current Medications: I have reviewed the current psychotropics carefully including drug interactions. Risk benefit ratio favors no change other than as noted in my dictated progress note. Diagnosis: Problems: (1) Chronic undifferentiated schizophrenia (2) Mild cognitive impairment (3) Schizoaffective disorder, mixed type (4) Anxiety disorder, unspecified (5) Bipolar disorder with psychotic features TYLOR MONACO MD Feb 28, 2019 21:04
[2019-03-01 05:13] VITALS: BP 132/69
[2019-03-01 07:15] LABS: BASO # 0.1 x10^3/uL (0.0-0.2); BASO % 1 % (0-3); EOS # 0.2 x10^3/uL (0.0-0.7); EOS % 3 % (0-3); HEMATOCRIT 35.6 % (39.0-53.0); HEMOGLOBIN 11.6 g/dL (13.0-17.5); LYMPH # 1.8 x10^3/uL (1.0-4.8); LYMPH % 26 % (24-48); MEAN CORPUSCULAR HEMOGLOBIN 29 pg (25-35); MEAN CORPUSCULAR HGB CONC 33 g/dL (31-37); MEAN CORPUSCULAR VOLUME 89 fL (79-100); MONO # 0.7 x10^3/uL (0.0-1.1); MONO % 11 % (0-9); NEUT # 4.2 x10^3uL (1.8-7.7); NEUT % 60 % (31-73); PLATELET COUNT 215 x10^3/uL (140-400); RED CELL DISTRIBUTION WIDTH 13.6 % (11.5-14.5)
[2019-03-01 07:30] LABS: ALBUMIN 2.9 g/dL (3.4-5.0); ALBUMIN/GLOBULIN RATIO 0.6 (1.0-1.7); CALCIUM 8.9 mg/dL (8.5-10.1); CREATININE 1.3 mg/dL (0.7-1.3); GFR 65.5; POTASSIUM 4.1 mmol/L (3.5-5.1); TOTAL BILIRUBIN 0.2 mg/dL (0.2-1.0); TOTAL PROTEIN 7.5 g/dL (6.4-8.2)
[2019-03-01] MEDS: NICOTINE 14MG PATCH. TD SCH (08:51)
[2019-03-01] MEDS: OLANZapine 5 MG TABLET PO SCH ×2 (08:51→20:03)
[2019-03-01] MEDS: DOCUSATE 100 MG/10 ML SOLUTION. PO SCH (08:51)
[2019-03-01] MEDS: FINASTERIDE 5 MG TABLET PO SCH (08:51)
[2019-03-01] MEDS: SERTRALINE 100 MG TABLET. PO SCH (08:51)
[2019-03-01] MEDS: METOPROLOL SUCC 24HR ER 25 MG TAB.ER.24H. PO SCH (08:52)
[2019-03-01] MEDS: SENNOSIDES 8.6 MG TABLET PO SCH (08:52)
[2019-03-01] MEDS: TAMSULOSIN 0.4 MG CAP.ER.24H. PO SCH ×2 (08:52→20:04)
[2019-03-01] MEDS: INSULIN LISPRO 300 UNITS/3 ML VIAL. SQ SCH ×3 (08:57→17:23)
[2019-03-01] MEDS: INSULIN GLARGINE SYRINGE. SQ SCH ×2 (08:58→20:05)
[2019-03-01] MEDS ORDERED: SERTRALINE 50 MG TABLET. PO SCH (09:00)
--- NOTE | 2019-03-01 09:39 | PN ---
DATE: 02/26/2019 PSYCHIATRIC PROGRESS NOTE This late entry 02/26/2019 covers elements not covered in my initial note. SUBJECTIVE: I met with the patient evening of 02/26/2019 and earlier in the day, staffed at treatment team meeting with the entire team. Reviewed his history at length and Tegretol has been started as a mood stabilizer. The patient slept 9 hours. Appetite 80%, did well in the morning, but in the evening, he was quite obsessed about wanting to go home, felt he was a millionaire. He does have a guardian through the court system. REVIEW OF SYSTEMS: No CV, , pulmonary, eye system symptoms on review. MENTAL STATUS EXAM: Reasonably oriented. Speech is coherent, has some latency. Abstraction fair, computation impaired, language function intact, attention span short. Mood and affect remains labile. LABORATORY DATA: Reviewed. IMPRESSION: Schizoaffective disorder, bipolar type, mixed with psychotic features, mild cognitive impairment; anxiety disorder, unspecified; impulse control disorder, unspecified. PLAN: Continue Tegretol 200 mg p.o. at bedtime. Check labs level on 03/01/2019. Adjust further as clinically indicated. TYLOR MONACO MD DR: CHERELLE/kiko JOB#: [id number] / [id number]
--- NOTE | 2019-03-01 09:42 | PN ---
DATE: 02/27/2019 This late entry 02/27/2019 covers elements not covered in my initial note. SUBJECTIVE: I met with the patient evening of 02/27/2019. The patient slept 6-1/4 hours previous night. He has been anxious, restless, exit seeking, received Zyprexa p.r.n. x 2. REVIEW OF SYSTEMS: No CV, , pulmonary, eye, ENT system symptoms on review, reliability varies. MENTAL STATUS EXAM: Oriented to himself and situation. Speech has some latency, coherent. Abstraction fair, computation impaired, language function intact. He is quite paranoid. No suicidal or homicidal ideation. LABORATORY DATA: Reviewed. IMPRESSION: Unchanged from initial note. PLAN: No change from initial note and adjust Tegretol post-labs and level. MAN Maggy MONACO MD DR: CHERELLE/kiko JOB#: [id number] / [id number]
--- NOTE | 2019-03-01 09:51 | PN ---
DATE: 02/28/2019 PSYCHIATRIC PROGRESS NOTE This late entry 02/28/2019 covers the elements not covered in my initial note. SUBJECTIVE: I met with the patient in the evening of 02/28/2019 in his room. He slept 6-1/2 hours previous night. He seems to have a fixed delusion that someone waiting for him downstairs. He needs to leave. He received Zyprexa x 2 p.r.n. little more cooperative, does have short term memory deficits. REVIEW OF SYSTEMS: No CV, , pulmonary, eye, ENT system symptoms on review. MENTAL STATUS EXAM: Oriented to himself and situation. Speech has some latency, coherent. Abstraction fair, computation impaired, language function intact. Mood and affect somewhat withdrawn. LABORATORY DATA: Reviewed. IMPRESSION: Unchanged from initial note. PLAN: No change from initial note. Check Tegretol level on 03/01/2019. Adjust to reach therapeutic level. Rest unchanged including Zoloft, Aricept, Haldol p.r.n., Zyprexa scheduled 5 mg b.i.d., trazodone. MAN Maggy MONACO MD DR: CHERELLE/kiko JOB#: [id number] / [id number]
[2019-03-01 11:59] LABS: CARBAM 4.5 mcg/mL (4.0-12.0)
[2019-03-01] MEDS: OLANZapine 2.5 MG TABLET PO PRN (12:51)
[2019-03-01 15:51] VITALS: BP 150/81
[2019-03-01] MEDS: DONEPEZIL HCL 10 MG TABLET PO SCH (20:03)
[2019-03-01] MEDS: carBAMazepine 200 MG TABLET PO SCH (20:03)
[2019-03-01] MEDS: traZODone 100 MG TABLET. PO SCH (20:04)
--- NOTE | 2019-03-01 21:26 | PDOC ---
Exam Note: Shon Note: Please also refer to the separate dictated note~for this date of service dictated separately.~Patient seen individually. Discussed the patient with Nursing staff reviewed the chart.~Reviewed interim history and current functioning. Reviewed vital signs,~Labs/ Radiology~and current medications noted below. Continue current treatment with the changes noted in the dictated addendum note Assessment: Vital Signs/I&O: Vital Signs Date Time Temp Pulse Resp B/P (MAP) Pulse Ox O2 Delivery O2 Flow Rate FiO2 03/01/19 15:51 98.2 77 18 150/81 (104) 98 02/26/19 16:07 Room Air I & O 02/28/19 02/28/19 03/01/19 15:00 23:00 07:00 Intake Total 960 ml 360 ml Balance 960 ml 360 ml Labs: Laboratory Tests Test 03/01/19 06:45 03/01/19 07:37 03/01/19 12:07 03/01/19 16:58 White Blood Count 7.0 x10^3/uL (4.0-11.0) Red Blood Count 4.00 x10^6/uL (4.30-5.70) L Hemoglobin 11.6 g/dL (13.0-17.5) L Hematocrit 35.6 % (39.0-53.0) L Mean Corpuscular Volume 89 fL (79-100) Mean Corpuscular Hemoglobin 29 pg (25-35) Mean Corpuscular Hemoglobin Concent 33 g/dL (31-37) Red Cell Distribution Width 13.6 % (11.5-14.5) Platelet Count 215 x10^3/uL (140-400) Neutrophils (%) (Auto) 60 % (31-73) Lymphocytes (%) (Auto) 26 % (24-48) Monocytes (%) (Auto) 11 % (0-9) H Eosinophils (%) (Auto) 3 % (0-3) Basophils (%) (Auto) 1 % (0-3) Neutrophils # (Auto) 4.2 x10^3uL (1.8-7.7) Lymphocytes # (Auto) 1.8 x10^3/uL (1.0-4.8) Monocytes # (Auto) 0.7 x10^3/uL (0.0-1.1) Eosinophils # (Auto) 0.2 x10^3/uL (0.0-0.7) Basophils # (Auto) 0.1 x10^3/uL (0.0-0.2) Sodium Level 140 mmol/L (136-145) Potassium Level 4.1 mmol/L (3.5-5.1) Chloride Level 105 mmol/L (98-107) Carbon Dioxide Level 31 mmol/L (21-32) Anion Gap 4 (6-14) L Blood Urea Nitrogen 21 mg/dL (8-26) Creatinine 1.3 mg/dL (0.7-1.3) Estimated GFR (Cockcroft-Gault) 65.5 BUN/Creatinine Ratio 16 (6-20) Glucose Level 111 mg/dL (70-99) H Calcium Level 8.9 mg/dL (8.5-10.1) Total Bilirubin 0.2 mg/dL (0.2-1.0) Aspartate Amino Transferase (AST) 20 U/L (15-37) Alanine Aminotransferase (ALT) 18 U/L (16-63) Alkaline Phosphatase 100 U/L (46-116) Total Protein 7.5 g/dL (6.4-8.2) Albumin 2.9 g/dL (3.4-5.0) L Albumin/Globulin Ratio 0.6 (1.0-1.7) L Carbamazepine (Tegretol) Level 4.5 mcg/mL (4.0-12.0) Carbamazepine Last Dose Date 02/28/19 Carbamazepine Last Dose Time 2100 Glucose (Fingerstick) 178 mg/dL (70-99) H 183 mg/dL (70-99) H 133 mg/dL (70-99) H Test 03/01/19 19:18 Glucose (Fingerstick) 160 mg/dL (70-99) H Current Medications: Meds: Current Medications Medications (Trade) Dose Ordered Sig/Deb Route PRN Reason Start Time Stop Time Status Last Admin Dose Admin Carbamazepine (TEGretol) 200 mg BID PO 03/01/19 21:00 03/01/19 20:03 I have reviewed the current psychotropics carefully including drug interactions. Risk benefit ratio favors no change other than as noted in my dictated progress note. Diagnosis: Problems: (1) Chronic undifferentiated schizophrenia (2) Mild cognitive impairment (3) Schizoaffective disorder, mixed type (4) Anxiety disorder, unspecified (5) Bipolar disorder with psychotic features TYLOR MONACO MD Mar 01, 2019 21:26
[2019-03-02 05:24] VITALS: BP 150/76
[2019-03-02] MEDS: INSULIN LISPRO 300 UNITS/3 ML VIAL. SQ SCH ×3 (07:30→17:25)
[2019-03-02] MEDS: INSULIN GLARGINE SYRINGE. SQ SCH ×2 (09:00→21:18)
[2019-03-02] MEDS: DOCUSATE 100 MG/10 ML SOLUTION. PO SCH (10:08)
[2019-03-02] MEDS: TAMSULOSIN 0.4 MG CAP.ER.24H. PO SCH ×2 (10:08→21:15)
[2019-03-02] MEDS: NICOTINE 14MG PATCH. TD SCH (10:08)
[2019-03-02] MEDS: SERTRALINE 100 MG TABLET. PO SCH (10:09)
[2019-03-02] MEDS: SENNOSIDES 8.6 MG TABLET PO SCH (10:09)
[2019-03-02] MEDS: carBAMazepine 200 MG TABLET PO SCH ×2 (10:09→21:15)
[2019-03-02] MEDS: OLANZapine 5 MG TABLET PO SCH ×2 (10:09→21:15)
[2019-03-02] MEDS: FINASTERIDE 5 MG TABLET PO SCH (10:10)
[2019-03-02] MEDS: METOPROLOL SUCC 24HR ER 25 MG TAB.ER.24H. PO SCH (10:10)
[2019-03-02 16:07] VITALS: BP 151/78
[2019-03-02] MEDS: traZODone 100 MG TABLET. PO SCH (21:15)
[2019-03-02] MEDS: DONEPEZIL HCL 10 MG TABLET PO SCH (21:16)
--- NOTE | 2019-03-02 21:25 | PDOC ---
Exam Note: Shon Note: Please also refer to the separate dictated note~for this date of service dictated separately.~Patient seen individually. Discussed the patient with Nursing staff reviewed the chart.~Reviewed interim history and current functioning. Reviewed vital signs,~Labs/ Radiology~and current medications noted below. Continue current treatment with the changes noted in the dictated addendum note Assessment: Vital Signs/I&O: Vital Signs Date Time Temp Pulse Resp B/P (MAP) Pulse Ox O2 Delivery O2 Flow Rate FiO2 03/02/19 16:07 98.4 94 16 151/78 (102) 98 02/26/19 16:07 Room Air I & O 03/01/19 03/01/19 03/02/19 14:59 22:59 06:59 Intake Total 480 ml 360 ml Balance 480 ml 360 ml Labs: Laboratory Tests Test 03/02/19 07:55 03/02/19 12:08 03/02/19 17:00 03/02/19 19:07 Glucose (Fingerstick) 70 mg/dL (70-99) 237 mg/dL (70-99) H 256 mg/dL (70-99) H 244 mg/dL (70-99) H Current Medications: I have reviewed the current psychotropics carefully including drug interactions. Risk benefit ratio favors no change other than as noted in my dictated progress note. Diagnosis: Problems: (1) Chronic undifferentiated schizophrenia (2) Mild cognitive impairment (3) Schizoaffective disorder, mixed type (4) Anxiety disorder, unspecified (5) Bipolar disorder with psychotic features TYLOR MONACO MD Mar 02, 2019 21:25
[2019-03-03 05:46] VITALS: BP 132/60
[2019-03-03] MEDS: INSULIN LISPRO 300 UNITS/3 ML VIAL. SQ SCH ×3 (07:30→17:36)
[2019-03-03] MEDS: FINASTERIDE 5 MG TABLET PO SCH (09:35)
[2019-03-03] MEDS: SENNOSIDES 8.6 MG TABLET PO SCH (09:35)
[2019-03-03] MEDS: DOCUSATE 100 MG/10 ML SOLUTION. PO SCH (09:35)
[2019-03-03] MEDS: NICOTINE 14MG PATCH. TD SCH (09:35)
[2019-03-03] MEDS: SERTRALINE 100 MG TABLET. PO SCH (09:36)
[2019-03-03] MEDS: OLANZapine 5 MG TABLET PO SCH ×2 (09:36→20:23)
[2019-03-03] MEDS: buPROPion XL 150 MG TAB.ER.24H PO SCH (09:36)
[2019-03-03] MEDS: METOPROLOL SUCC 24HR ER 25 MG TAB.ER.24H. PO SCH (09:36)
[2019-03-03] MEDS: TAMSULOSIN 0.4 MG CAP.ER.24H. PO SCH ×2 (09:36→20:23)
[2019-03-03] MEDS: carBAMazepine 200 MG TABLET PO SCH ×2 (09:37→20:23)
[2019-03-03] MEDS: INSULIN GLARGINE SYRINGE. SQ SCH ×2 (09:37→20:22)
[2019-03-03 15:46] VITALS: BP 153/74
--- NOTE | 2019-03-03 18:25 | PN ---
DATE: 03/02/2019 PSYCHIATRIC PROGRESS NOTE This late entry 03/02/2019 covers elements not covered in my initial note. SUBJECTIVE: I met with the patient evening of 03/02/2019. The patient slept 6 hours previous night. He has been more appropriate, still delusional, fixated on discharge as someone is waiting for him downstairs. REVIEW OF SYSTEMS: Positive for tiredness. No CV, , pulmonary, eye system symptoms on review. MENTAL STATUS EXAM: Oriented to himself and situation. Speech has some latency, coherent. Abstraction fair, computation impaired, language function intact. Mood and affect withdrawn. LABORATORY DATA: Reviewed. IMPRESSION: Unchanged from initial note. PLAN: Reduce Zoloft from 200 mg a day to 150 mg a day, augment with Wellbutrin-XL 150 mg a day, continue Tegretol, which was increased to 200 b.i.d. Maintain Aricept, Haldol p.r.n., Zyprexa scheduled 5 mg b.i.d. Rest unchanged. MAN Maggy MONACO MD DR: CHERELLE/kiko JOB#: [id number] / [id number]
[2019-03-03] MEDS: DONEPEZIL HCL 10 MG TABLET PO SCH (20:23)
[2019-03-03] MEDS: traZODone 100 MG TABLET. PO SCH (20:23)
--- NOTE | 2019-03-03 21:42 | PN ---
DATE: 03/01/2019 This late entry, 03/01/2019, covers the elements not covered in my initial note. SUBJECTIVE: I met with the patient evening of 03/01/2019 at length in his room. Per DARCY Carroll, the patient slept 5-1/2 hours previous night, compliant with medications in the morning, obsessed about wanting to be discharged, believes his ride is downstairs. REVIEW OF SYSTEMS: No CV, , pulmonary, eye, or ENT system symptoms on review. Reliability varies. MENTAL STATUS EXAM: Oriented to himself and situation. Speech coherent and has some latency. Abstraction fair, computation impaired, language function intact, and attention span short. Mood and affect are withdrawn. No active suicidal ideation. LABORATORY DATA: Reviewed. PLAN: Tegretol level 200 mg at bedtime, it is subtherapeutic at 4 and we will increase the Tegretol to 200 mg b.i.d. Check CBC, CMP, and Tegretol level in 3 days. Continue Aricept. Schedule Zyprexa, Zoloft, and trazodone for now. MAN Maggy MONACO MD DR: CHERELLE/kiko JOB#: [id number] / [id number]
--- NOTE | 2019-03-03 21:43 | PDOC ---
Exam Note: Shon Note: Please also refer to the separate dictated note~for this date of service dictated separately.~Patient seen individually. Discussed the patient with Nursing staff reviewed the chart.~Reviewed interim history and current functioning. Reviewed vital signs,~Labs/ Radiology~and current medications noted below. Continue current treatment with the changes noted in the dictated addendum note Assessment: Vital Signs/I&O: Vital Signs Date Time Temp Pulse Resp B/P (MAP) Pulse Ox O2 Delivery O2 Flow Rate FiO2 03/03/19 15:46 97.6 79 18 153/74 (100) 97 03/03/19 05:46 Room Air I & O 03/02/19 03/02/19 03/03/19 15:00 23:00 07:00 Intake Total 720 ml 840 ml Balance 720 ml 840 ml Labs: Laboratory Tests Test 03/03/19 07:30 03/03/19 11:51 03/03/19 17:12 03/03/19 19:02 Glucose (Fingerstick) 55 mg/dL (70-99) L 163 mg/dL (70-99) H 115 mg/dL (70-99) H 232 mg/dL (70-99) H Current Medications: Meds: Current Medications Medications (Trade) Dose Ordered Sig/Deb Route PRN Reason Start Time Stop Time Status Last Admin Dose Admin Sertraline HCl (Zoloft) 150 mg DAILY PO 03/03/19 09:00 03/03/19 09:36 Bupropion HCl (Wellbutrin Xl) 150 mg DAILY PO 03/03/19 09:00 03/03/19 09:36 I have reviewed the current psychotropics carefully including drug interactions. Risk benefit ratio favors no change other than as noted in my dictated progress note. Diagnosis: Problems: (1) Chronic undifferentiated schizophrenia (2) Mild cognitive impairment (3) Schizoaffective disorder, mixed type (4) Anxiety disorder, unspecified (5) Bipolar disorder with psychotic features TYLOR MONACO MD Mar 03, 2019 21:43
[2019-03-04 05:15] VITALS: BP 129/68
[2019-03-04] MEDS: buPROPion XL 150 MG TAB.ER.24H PO SCH (08:33)
[2019-03-04] MEDS: SENNOSIDES 8.6 MG TABLET PO SCH (08:33)
[2019-03-04] MEDS: SERTRALINE 100 MG TABLET. PO SCH (08:34)
[2019-03-04] MEDS: OLANZapine 5 MG TABLET PO SCH ×2 (08:34→20:38)
[2019-03-04] MEDS: DOCUSATE SODIUM 100 MG CAPSULE PO SCH (08:35)
[2019-03-04] MEDS: carBAMazepine 200 MG TABLET PO SCH ×2 (08:35→20:38)
[2019-03-04] MEDS: TAMSULOSIN 0.4 MG CAP.ER.24H. PO SCH ×2 (08:35→20:38)
[2019-03-04] MEDS: NICOTINE 14MG PATCH. TD SCH (08:35)
[2019-03-04] MEDS: METOPROLOL SUCC 24HR ER 25 MG TAB.ER.24H. PO SCH (08:35)
[2019-03-04] MEDS: FINASTERIDE 5 MG TABLET PO SCH (08:35)
[2019-03-04] MEDS: INSULIN LISPRO 300 UNITS/3 ML VIAL. SQ SCH ×3 (08:41→17:29)
[2019-03-04] MEDS: INSULIN GLARGINE SYRINGE. SQ SCH ×2 (08:42→20:40)
[2019-03-04 15:41] VITALS: BP 169/96
[2019-03-04] MEDS: traZODone 100 MG TABLET. PO SCH (20:38)
[2019-03-04] MEDS: DONEPEZIL HCL 10 MG TABLET PO SCH (20:38)
--- NOTE | 2019-03-04 20:57 | PDOC ---
Exam Note: Shon Note: Please also refer to the separate dictated note~for this date of service dictated separately.~Patient seen individually. Discussed the patient with Nursing staff reviewed the chart.~Reviewed interim history and current functioning. Reviewed vital signs,~Labs/ Radiology~and current medications noted below. Continue current treatment with the changes noted in the dictated addendum note Assessment: Vital Signs/I&O: Vital Signs Date Time Temp Pulse Resp B/P (MAP) Pulse Ox O2 Delivery O2 Flow Rate FiO2 03/04/19 15:41 98.3 75 18 169/96 (120) 95 03/04/19 05:15 Room Air I & O 03/03/19 03/03/19 03/04/19 15:00 23:00 07:00 Intake Total 600 ml Balance 600 ml Labs: Laboratory Tests Test 03/04/19 07:24 03/04/19 07:56 03/04/19 12:04 03/04/19 16:57 Glucose (Fingerstick) 42 mg/dL (70-99) L 144 mg/dL (70-99) H 83 mg/dL (70-99) 173 mg/dL (70-99) H Test 03/04/19 19:59 Glucose (Fingerstick) 223 mg/dL (70-99) H Current Medications: Meds: Current Medications Medications (Trade) Dose Ordered Sig/Deb Route PRN Reason Start Time Stop Time Status Last Admin Dose Admin Docusate Sodium (Colace) 100 mg DAILY PO 03/04/19 09:00 03/04/19 08:35 I have reviewed the current psychotropics carefully including drug interactions. Risk benefit ratio favors no change other than as noted in my dictated progress note. Diagnosis: Problems: (1) Chronic undifferentiated schizophrenia (2) Mild cognitive impairment (3) Schizoaffective disorder, mixed type (4) Anxiety disorder, unspecified (5) Bipolar disorder with psychotic features TYLOR MONACO MD Mar 04, 2019 20:57
[2019-03-05 05:04] VITALS: BP 173/82
[2019-03-05] MEDS: INSULIN LISPRO 300 UNITS/3 ML VIAL. SQ SCH ×3 (07:30→17:33)
[2019-03-05 08:42] LABS: BASO # 0.1 x10^3/uL (0.0-0.2); BASO % 1 % (0-3); EOS # 0.2 x10^3/uL (0.0-0.7); EOS % 2 % (0-3); HEMOGLOBIN 12.1 g/dL (13.0-17.5); LYMPH # 1.8 x10^3/uL (1.0-4.8); LYMPH % 23 % (24-48); MEAN CORPUSCULAR HEMOGLOBIN 29 pg (25-35); MEAN CORPUSCULAR HGB CONC 33 g/dL (31-37); MEAN CORPUSCULAR VOLUME 87 fL (79-100); MONO # 0.7 x10^3/uL (0.0-1.1); MONO % 9 % (0-9); NEUT # 5.1 x10^3uL (1.8-7.7); NEUT % 66 % (31-73); PLATELET COUNT 223 x10^3/uL (140-400); RED BLOOD COUNT 4.23 x10^6/uL (4.30-5.70); WHITE BLOOD COUNT 7.8 x10^3/uL (4.0-11.0)
[2019-03-05 08:52] LABS: ALBUMIN 3.2 g/dL (3.4-5.0); ALBUMIN/GLOBULIN RATIO 0.6 (1.0-1.7); CALCIUM 9.4 mg/dL (8.5-10.1); CREATININE 1.3 mg/dL (0.7-1.3); GFR 65.5; POTASSIUM 4.7 mmol/L (3.5-5.1); TOTAL BILIRUBIN 0.2 mg/dL (0.2-1.0); TOTAL PROTEIN 8.3 g/dL (6.4-8.2)
[2019-03-05] MEDS: FINASTERIDE 5 MG TABLET PO SCH (09:18)
[2019-03-05] MEDS: OLANZapine 5 MG TABLET PO SCH ×2 (09:18→21:08)
[2019-03-05] MEDS: NICOTINE 14MG PATCH. TD SCH (09:18)
[2019-03-05] MEDS: METOPROLOL SUCC 24HR ER 25 MG TAB.ER.24H. PO SCH (09:18)
[2019-03-05] MEDS: SENNOSIDES 8.6 MG TABLET PO SCH (09:19)
[2019-03-05] MEDS: SERTRALINE 100 MG TABLET. PO SCH (09:19)
[2019-03-05] MEDS: DOCUSATE SODIUM 100 MG CAPSULE PO SCH (09:19)
[2019-03-05] MEDS: TAMSULOSIN 0.4 MG CAP.ER.24H. PO SCH ×2 (09:19→21:08)
[2019-03-05] MEDS: carBAMazepine 200 MG TABLET PO SCH ×2 (09:19→21:08)
[2019-03-05] MEDS: buPROPion XL 150 MG TAB.ER.24H PO SCH (09:19)
[2019-03-05] MEDS: INSULIN GLARGINE SYRINGE. SQ SCH ×2 (09:23→21:00)
--- NOTE | 2019-03-05 11:52 | PN ---
DATE: 03/03/2019 PSYCHIATRIC PROGRESS NOTE This late entry on 03/03/2019 covers elements not covered in my initial note. SUBJECTIVE: I met with the patient in the evening of 03/03/2019. The patient slept 5-1/4 hours previous night. He has had a better day, though he gets obsessed about wanting to leave, believes that someone waiting downstairs. Discussed with Autumn Albarado RN and addressed this at length with them individually in his room. REVIEW OF SYSTEMS: Positive for tiredness. No CV, , pulmonary, eye system symptoms on review. MENTAL STATUS EXAM: Reasonably oriented. Speech has some latency, coherent. Abstraction fair. Computation impaired. Language function intact. Attention span short. Mood and affect remain somewhat withdrawn at times, labile at other times. LABORATORY DATA: Reviewed. IMPRESSION: Schizophrenia, chronic, undifferentiated with acute exacerbation; schizoaffective disorder, bipolar type, mixed with psychotic features. Rest unchanged. PLAN: Continue current psychotropics. Tegretol was increased to 200 mg b.i.d. Repeat labs and Tegretol level on 03/05/2019. Maintain Wellbutrin, Zoloft, Aricept, trazodone and Zyprexa for now. TYLOR MONACO MD DR: CHERELLE/kiko JOB#: [id number] / [id number]
--- NOTE | 2019-03-05 12:04 | PN ---
DATE: 03/04/2019 PSYCHIATRIC PROGRESS NOTE This late entry on 03/04/2019 covers elements not covered in my initial note. SUBJECTIVE: I met with the patient in the evening of 03/04/2019. The patient slept 8-1/2 hours previous night. He has been pleasant, less obsessed about discharge. Still talking about this as I met with him in his room. REVIEW OF SYSTEMS: No CV, , pulmonary, eye system symptoms on review. MENTAL STATUS EXAMINATION: Reasonably oriented to place and situation. Speech has some latency, often responses monosyllabic. Abstraction fair. Computation impaired. Language function intact. Mood and affect withdrawn. LABORATORY DATA: Reviewed. IMPRESSION: Unchanged from initial note. PLAN: No change from initial note. Check Tegretol level on 03/05/2019. Adjust to reach therapeutic level. Maintain Aricept along with scheduled Zyprexa 5 mg b.i.d., Zoloft and trazodone along with Wellbutrin for now. TYLOR MONACO MD DR: CHERELLE/kiko JOB#: [id number] / [id number]
[2019-03-05 15:42] VITALS: BP 162/92
[2019-03-05 18:58] LABS: CARBAM 6.8 mcg/mL (4.0-12.0)
[2019-03-05] MEDS: traZODone 100 MG TABLET. PO SCH (21:09)
[2019-03-05] MEDS: MIRTAZAPINE 7.5 MG TABLET. PO SCH (21:09)
[2019-03-05] MEDS: DONEPEZIL HCL 10 MG TABLET PO SCH (21:09)
--- NOTE | 2019-03-05 21:19 | PDOC ---
Exam Note: Shon Note: Please also refer to the separate dictated note~for this date of service dictated separately.~Patient seen individually. Discussed the patient with Nursing staff reviewed the chart.~Reviewed interim history and current functioning. Reviewed vital signs,~Labs/ Radiology~and current medications noted below. Continue current treatment with the changes noted in the dictated addendum note Assessment: Vital Signs/I&O: Vital Signs Date Time Temp Pulse Resp B/P (MAP) Pulse Ox O2 Delivery O2 Flow Rate FiO2 03/05/19 15:42 98.2 75 18 162/92 (115) 94 03/05/19 05:04 Room Air I & O 03/04/19 03/04/19 03/05/19 15:00 23:00 07:00 Intake Total 720 ml 240 ml Balance 720 ml 240 ml Labs: Laboratory Tests Test 03/05/19 07:17 03/05/19 08:08 03/05/19 09:12 03/05/19 11:39 Glucose (Fingerstick) 40 mg/dL (70-99) L 173 mg/dL (70-99) H 140 mg/dL (70-99) H White Blood Count 7.8 x10^3/uL (4.0-11.0) Red Blood Count 4.23 x10^6/uL (4.30-5.70) L Hemoglobin 12.1 g/dL (13.0-17.5) L Hematocrit 37.0 % (39.0-53.0) L Mean Corpuscular Volume 87 fL (79-100) Mean Corpuscular Hemoglobin 29 pg (25-35) Mean Corpuscular Hemoglobin Concent 33 g/dL (31-37) Red Cell Distribution Width 14.0 % (11.5-14.5) Platelet Count 223 x10^3/uL (140-400) Neutrophils (%) (Auto) 66 % (31-73) Lymphocytes (%) (Auto) 23 % (24-48) L Monocytes (%) (Auto) 9 % (0-9) Eosinophils (%) (Auto) 2 % (0-3) Basophils (%) (Auto) 1 % (0-3) Neutrophils # (Auto) 5.1 x10^3uL (1.8-7.7) Lymphocytes # (Auto) 1.8 x10^3/uL (1.0-4.8) Monocytes # (Auto) 0.7 x10^3/uL (0.0-1.1) Eosinophils # (Auto) 0.2 x10^3/uL (0.0-0.7) Basophils # (Auto) 0.1 x10^3/uL (0.0-0.2) Sodium Level 138 mmol/L (136-145) Potassium Level 4.7 mmol/L (3.5-5.1) Chloride Level 102 mmol/L (98-107) Carbon Dioxide Level 29 mmol/L (21-32) Anion Gap 7 (6-14) Blood Urea Nitrogen 18 mg/dL (8-26) Creatinine 1.3 mg/dL (0.7-1.3) Estimated GFR (Cockcroft-Gault) 65.5 BUN/Creatinine Ratio 14 (6-20) Glucose Level 112 mg/dL (70-99) H Calcium Level 9.4 mg/dL (8.5-10.1) Total Bilirubin 0.2 mg/dL (0.2-1.0) Aspartate Amino Transferase (AST) 24 U/L (15-37) Alanine Aminotransferase (ALT) 18 U/L (16-63) Alkaline Phosphatase 105 U/L (46-116) Total Protein 8.3 g/dL (6.4-8.2) H Albumin 3.2 g/dL (3.4-5.0) L Albumin/Globulin Ratio 0.6 (1.0-1.7) L Carbamazepine (Tegretol) Level 6.8 mcg/mL (4.0-12.0) Carbamazepine Last Dose Date 03/04/19 Carbamazepine Last Dose Time 2100 Test 03/05/19 16:34 03/05/19 19:21 Glucose (Fingerstick) 125 mg/dL (70-99) H 188 mg/dL (70-99) H Current Medications: Meds: Current Medications Medications (Trade) Dose Ordered Sig/Deb Route PRN Reason Start Time Stop Time Status Last Admin Dose Admin Mirtazapine (Remeron) 7.5 mg QHS PO 03/05/19 21:00 03/05/19 21:09 Insulin Glargine (Lantus Syringe) 15 unit BID SQ 03/05/19 21:00 03/05/19 21:00 I have reviewed the current psychotropics carefully including drug interactions. Risk benefit ratio favors no change other than as noted in my dictated progress note. Diagnosis: Problems: (1) Chronic undifferentiated schizophrenia (2) Mild cognitive impairment (3) Schizoaffective disorder, mixed type (4) Anxiety disorder, unspecified (5) Bipolar disorder with psychotic features TYLOR MONACO MD Mar 05, 2019 21:19
[2019-03-06 05:45] VITALS: BP 153/75
[2019-03-06] MEDS: carBAMazepine 200 MG TABLET PO SCH ×2 (09:04→20:25)
[2019-03-06] MEDS: OLANZapine 5 MG TABLET PO SCH ×2 (09:04→20:25)
[2019-03-06] MEDS: SENNOSIDES 8.6 MG TABLET PO SCH (09:04)
[2019-03-06] MEDS: buPROPion XL 150 MG TAB.ER.24H PO SCH (09:04)
[2019-03-06] MEDS: FINASTERIDE 5 MG TABLET PO SCH (09:04)
[2019-03-06] MEDS: DOCUSATE SODIUM 100 MG CAPSULE PO SCH (09:04)
[2019-03-06] MEDS: SERTRALINE 100 MG TABLET. PO SCH (09:04)
[2019-03-06] MEDS: TAMSULOSIN 0.4 MG CAP.ER.24H. PO SCH ×2 (09:04→20:25)
[2019-03-06] MEDS: NICOTINE 14MG PATCH. TD SCH (09:05)
[2019-03-06] MEDS: METOPROLOL SUCC 24HR ER 25 MG TAB.ER.24H. PO SCH (09:05)
[2019-03-06] MEDS: INSULIN LISPRO 300 UNITS/3 ML VIAL. SQ SCH ×3 (09:18→18:05)
[2019-03-06] MEDS: INSULIN GLARGINE SYRINGE. SQ SCH ×2 (09:18→20:29)
--- NOTE | 2019-03-06 13:52 | PN ---
DATE: 03/06/2019 SUBJECTIVE: The patient was seen today, met with the staff, chart reviewed and also covering for Dr. Perez. Staff reports no major problems, is pleasant and cooperative and compliant with treatment including medications. Apparently, he tends to withdraw to his room and tendency to wander on the hallway. OBSERVATION: VITAL SIGNS: Temperature 97.9, blood pressure 152/75, pulse 74, respirations 20, O2 sat 95%. GENERAL: Slept about 5 hours last night. His appetite is fair. LABORATORY DATA: The patient's lab reviewed. Hemoglobin 12.1, blood sugar fluctuates. Hemoglobin A1c was 13.2. BUN 28, creatinine 1.6. MEDICATIONS: The patient's current medications include mirtazapine 7.5 mg at night, buspirone 150 mg daily, Zoloft 150 mg daily, Tegretol 200 mg b.i.d., olanzapine 2.5 mg q.2 hours p.r.n., Aricept 10 mg at night, trazodone 100 mg at night, olanzapine 5 mg b.i.d., and Haldol 5 mg q.4 hours p.r.n. for agitation. The patient is not presenting with any major side effects. ASSESSMENT: 1. Schizoaffective disorder, bipolar type, with psychotic features. 2. Schizophrenia, chronic, undifferentiated, by history. 3. Mild cognitive impairment. PLAN: Continue with the current treatment plan. LENGTH OF STAY: 5-7 days. MARGARET HEREDIA MD DR: LUZ MARIA/kiko JOB#: [id number] / [id number]
[2019-03-06 15:32] VITALS: BP 167/82
[2019-03-06] MEDS: DONEPEZIL HCL 10 MG TABLET PO SCH (20:25)
[2019-03-06] MEDS: traZODone 100 MG TABLET. PO SCH (20:25)
[2019-03-06] MEDS: MIRTAZAPINE 7.5 MG TABLET. PO SCH (20:25)
[2019-03-07 05:37] VITALS: BP 150/76
[2019-03-07] MEDS: INSULIN LISPRO 300 UNITS/3 ML VIAL. SQ SCH ×3 (09:35→17:27)
[2019-03-07] MEDS: NICOTINE 14MG PATCH. TD SCH (09:37)
[2019-03-07] MEDS: FINASTERIDE 5 MG TABLET PO SCH (09:37)
[2019-03-07] MEDS: INSULIN GLARGINE SYRINGE. SQ SCH ×2 (09:37→20:54)
[2019-03-07] MEDS: buPROPion XL 150 MG TAB.ER.24H PO SCH (09:37)
[2019-03-07] MEDS: OLANZapine 5 MG TABLET PO SCH ×2 (09:38→20:50)
[2019-03-07] MEDS: SERTRALINE 100 MG TABLET. PO SCH (09:38)
[2019-03-07] MEDS: METOPROLOL SUCC 24HR ER 25 MG TAB.ER.24H. PO SCH (09:38)
[2019-03-07] MEDS: TAMSULOSIN 0.4 MG CAP.ER.24H. PO SCH ×2 (09:38→20:50)
[2019-03-07] MEDS: carBAMazepine 200 MG TABLET PO SCH ×2 (09:38→20:50)
[2019-03-07] MEDS: SENNOSIDES 8.6 MG TABLET PO SCH (09:38)
[2019-03-07] MEDS: DOCUSATE SODIUM 100 MG CAPSULE PO SCH (09:38)
[2019-03-07 16:07] VITALS: BP 163/79
[2019-03-07] MEDS: MIRTAZAPINE 7.5 MG TABLET. PO SCH (20:50)
[2019-03-07] MEDS: traZODone 100 MG TABLET. PO SCH (20:50)
[2019-03-07] MEDS: DONEPEZIL HCL 10 MG TABLET PO SCH (20:50)
--- NOTE | 2019-03-07 21:07 | PN ---
DATE: 03/07/2019 SUBJECTIVE: The patient was seen today, met with the staff, chart reviewed. Staff reports no major behavior problems. Still confused, impulsive. Otherwise, he has been compliant most of the times and takes medications. OBSERVATION: VITAL SIGNS: Temperature 98.1, blood pressure 150/76, pulse 75, respiration 14, O2 sat 95%. GENERAL: Slept about 5 hours last night. The patient's appetite improved. CURRENT MEDICATIONS: Include mirtazapine 7.5 mg at night, bupropion 150 mg daily, Zoloft 150 mg daily, Tegretol 200 mg b.i.d., Aricept 10 mg daily, trazodone 100 mg at night, olanzapine 5 mg b.i.d. and also olanzapine 2.5 mg q. 2 hours p.r.n. The patient is not having any side effects to medications. ASSESSMENT: 1. Schizoaffective disorder, bipolar type, with psychotic features. 2. Schizophrenia, chronic, undifferentiated, by history. 3. Mild cognitive impairment. PLAN: To continue with the treatment plan. LENGTH OF STAY: 5-7 days. MARGARET HEREDIA MD DR: LUZ MARIA/kiko JOB#: [id number] / [id number]
[2019-03-08 05:47] VITALS: BP 164/71
[2019-03-08] MEDS: INSULIN LISPRO 300 UNITS/3 ML VIAL. SQ SCH ×3 (07:30→17:40)
[2019-03-08] MEDS: TAMSULOSIN 0.4 MG CAP.ER.24H. PO SCH ×2 (09:24→21:08)
[2019-03-08] MEDS: SERTRALINE 100 MG TABLET. PO SCH (09:25)
[2019-03-08] MEDS: FINASTERIDE 5 MG TABLET PO SCH (09:25)
[2019-03-08] MEDS: METOPROLOL SUCC 24HR ER 25 MG TAB.ER.24H. PO SCH (09:25)
[2019-03-08] MEDS: carBAMazepine 200 MG TABLET PO SCH ×2 (09:26→21:07)
[2019-03-08] MEDS: buPROPion XL 150 MG TAB.ER.24H PO SCH (09:27)
[2019-03-08] MEDS: SENNOSIDES 8.6 MG TABLET PO SCH (09:27)
[2019-03-08] MEDS: DOCUSATE SODIUM 100 MG CAPSULE PO SCH (09:27)
[2019-03-08] MEDS: OLANZapine 5 MG TABLET PO SCH ×2 (09:28→21:08)
[2019-03-08] MEDS: NICOTINE 14MG PATCH. TD SCH (09:28)
[2019-03-08] MEDS: INSULIN GLARGINE SYRINGE. SQ SCH ×2 (09:31→21:08)
[2019-03-08 15:49] VITALS: BP 167/80
[2019-03-08] MEDS: MIRTAZAPINE 7.5 MG TABLET. PO SCH (21:07)
--- NOTE | 2019-03-08 21:07 | PDOC ---
Exam Note: Shon Note: Please also refer to the separate dictated note~for this date of service dictated separately.~Patient seen individually. Discussed the patient with Nursing staff reviewed the chart.~Reviewed interim history and current functioning. Reviewed vital signs,~Labs/ Radiology~and current medications noted below. Continue current treatment with the changes noted in the dictated addendum note Assessment: Vital Signs/I&O: Vital Signs Date Time Temp Pulse Resp B/P (MAP) Pulse Ox O2 Delivery O2 Flow Rate FiO2 03/08/19 15:49 97.5 75 16 167/80 (109) 96 03/05/19 05:04 Room Air I & O 03/07/19 03/07/19 03/08/19 15:00 23:00 07:00 Intake Total 940 ml 240 ml 240 ml Balance 940 ml 240 ml 240 ml Labs: Laboratory Tests Test 03/08/19 07:46 03/08/19 11:59 03/08/19 16:52 03/08/19 19:39 Glucose (Fingerstick) 71 mg/dL (70-99) 147 mg/dL (70-99) H 158 mg/dL (70-99) H 142 mg/dL (70-99) H Current Medications: I have reviewed the current psychotropics carefully including drug interactions. Risk benefit ratio favors no change other than as noted in my dictated progress note. Diagnosis: Problems: (1) Chronic undifferentiated schizophrenia (2) Mild cognitive impairment (3) Schizoaffective disorder, mixed type (4) Anxiety disorder, unspecified (5) Bipolar disorder with psychotic features TYLOR MONACO MD Mar 08, 2019 21:07
[2019-03-08] MEDS: traZODone 100 MG TABLET. PO SCH (21:08)
[2019-03-08] MEDS: DONEPEZIL HCL 10 MG TABLET PO SCH (21:08)
--- NOTE | 2019-03-08 22:37 | PN ---
DATE: 03/05/2019 This late entry 03/05/2019 covers elements not covered in my initial note. SUBJECTIVE: I met with the patient in the evening and staffed a treatment team meeting with the entire team in the morning. The patient slept 3-1/4 hours, average 5-1/4 hours, appetite 80%, wandering, anxious, paranoid. REVIEW OF SYSTEMS: No CV, , pulmonary, eye system symptoms on review. Reliability poor. MENTAL STATUS EXAM: Oriented to himself and situation. Speech has some latency, coherent. Abstraction fair, computation impaired, language function intact, attention span short. Mood and affect remained somewhat withdrawn. LABORATORY DATA: Reviewed. IMPRESSION: Schizoaffective disorder, bipolar type, depressed with psychotic features. Rest unchanged. PLAN: Start Remeron 7.5 mg at bedtime. Rest unchanged for now. MAN Maggy MONACO MD DR: CHERELLE/kiko JOB#: [id number] / [id number]
[2019-03-09 05:13] VITALS: BP 144/71
[2019-03-09 09:00] VITALS: BP 177/90
[2019-03-09] MEDS: NICOTINE 14MG PATCH. TD SCH (09:29)
[2019-03-09] MEDS: TAMSULOSIN 0.4 MG CAP.ER.24H. PO SCH ×2 (09:30→21:03)
[2019-03-09] MEDS: SENNOSIDES 8.6 MG TABLET PO SCH (09:30)
[2019-03-09] MEDS: METOPROLOL SUCC 24HR ER 25 MG TAB.ER.24H. PO SCH (09:30)
[2019-03-09] MEDS: OLANZapine 5 MG TABLET PO SCH ×2 (09:30→21:02)
[2019-03-09] MEDS: HALOPERIDOL 5 MG TABLET PO PRN (09:30)
[2019-03-09] MEDS: buPROPion XL 150 MG TAB.ER.24H PO SCH (09:31)
[2019-03-09] MEDS: DOCUSATE SODIUM 100 MG CAPSULE PO SCH (09:31)
[2019-03-09] MEDS: carBAMazepine 200 MG TABLET PO SCH ×2 (09:31→21:03)
[2019-03-09] MEDS: FINASTERIDE 5 MG TABLET PO SCH (09:31)
[2019-03-09] MEDS: SERTRALINE 100 MG TABLET. PO SCH (09:31)
[2019-03-09] MEDS: INSULIN LISPRO 300 UNITS/3 ML VIAL. SQ SCH ×3 (09:35→17:15)
[2019-03-09] MEDS: INSULIN GLARGINE SYRINGE. SQ SCH ×2 (09:36→21:05)
[2019-03-09 16:10] VITALS: BP 175/63
[2019-03-09] MEDS: MIRTAZAPINE 7.5 MG TABLET. PO SCH (21:02)
[2019-03-09] MEDS: DONEPEZIL HCL 10 MG TABLET PO SCH (21:03)
[2019-03-09] MEDS: traZODone 100 MG TABLET. PO SCH (21:03)
--- NOTE | 2019-03-09 21:25 | PDOC ---
Exam Note: Shon Note: Please also refer to the separate dictated note~for this date of service dictated separately.~Patient seen individually. Discussed the patient with Nursing staff reviewed the chart.~Reviewed interim history and current functioning. Reviewed vital signs,~Labs/ Radiology~and current medications noted below. Continue current treatment with the changes noted in the dictated addendum note Assessment: Vital Signs/I&O: Vital Signs Date Time Temp Pulse Resp B/P (MAP) Pulse Ox O2 Delivery O2 Flow Rate FiO2 03/09/19 16:10 98.9 78 18 175/63 (100) 98 03/05/19 05:04 Room Air I & O 03/08/19 03/08/19 03/09/19 15:00 23:00 07:00 Intake Total 840 ml 360 ml Balance 840 ml 360 ml Labs: Laboratory Tests Test 03/09/19 07:28 03/09/19 12:04 03/09/19 16:56 03/09/19 19:37 Glucose (Fingerstick) 82 mg/dL (70-99) 128 mg/dL (70-99) H 217 mg/dL (70-99) H 140 mg/dL (70-99) H Current Medications: I have reviewed the current psychotropics carefully including drug interactions. Risk benefit ratio favors no change other than as noted in my dictated progress note. Diagnosis: Problems: (1) Chronic undifferentiated schizophrenia (2) Mild cognitive impairment (3) Schizoaffective disorder, mixed type (4) Anxiety disorder, unspecified (5) Bipolar disorder with psychotic features TYLOR MONACO MD Mar 09, 2019 21:25
[2019-03-10] MEDS ORDERED: NICO1PAT25 TD (02:40)
[2019-03-10] MEDS ORDERED: METH28OI2 TP (02:41)
[2019-03-10] MEDS ORDERED: ACET325T21 PO (02:42)
[2019-03-10] MEDS ORDERED: CARB200C7 PO (02:44)
[2019-03-10] MEDS ORDERED: BUPR-192 PO (02:45)
[2019-03-10] MEDS ORDERED: MIRT7.5T8 PO (02:47)
[2019-03-10] MEDS ORDERED: OLAN5TAB9 PO (02:49)
[2019-03-10] MEDS ORDERED: MAG30ORA2 PO (02:50)
[2019-03-10] MEDS ORDERED: MAGN400O7 PO (02:51)
[2019-03-10] MEDS ORDERED: INSU100V SQ (02:51)
[2019-03-10] MEDS ORDERED: DOCU100C28 PO (02:58)
[2019-03-10 05:06] VITALS: BP 135/71
[2019-03-10] MEDS: NICOTINE 14MG PATCH. TD SCH ×2 (09:00→09:37)
[2019-03-10] MEDS: SERTRALINE 100 MG TABLET. PO SCH (09:38)
[2019-03-10] MEDS: buPROPion XL 150 MG TAB.ER.24H PO SCH (09:38)
[2019-03-10] MEDS: SENNOSIDES 8.6 MG TABLET PO SCH (09:38)
[2019-03-10] MEDS: FINASTERIDE 5 MG TABLET PO SCH (09:38)
[2019-03-10] MEDS: TAMSULOSIN 0.4 MG CAP.ER.24H. PO SCH ×2 (09:38→20:52)
[2019-03-10] MEDS: METOPROLOL SUCC 24HR ER 25 MG TAB.ER.24H. PO SCH (09:38)
[2019-03-10] MEDS: OLANZapine 5 MG TABLET PO SCH ×2 (09:38→20:52)
[2019-03-10] MEDS: DOCUSATE SODIUM 100 MG CAPSULE PO SCH (09:39)
[2019-03-10] MEDS: carBAMazepine 200 MG TABLET PO SCH ×2 (09:39→20:52)
[2019-03-10] MEDS: INSULIN GLARGINE SYRINGE. SQ SCH ×2 (09:40→20:55)
[2019-03-10] MEDS: INSULIN LISPRO 300 UNITS/3 ML VIAL. SQ SCH ×3 (09:41→17:30)
[2019-03-10 15:38] VITALS: BP 131/79
--- NOTE | 2019-03-10 20:48 | PDOC ---
Exam Note: Shon Note: Please also refer to the separate dictated note~for this date of service dictated separately.~Patient seen individually. Discussed the patient with Nursing staff reviewed the chart.~Reviewed interim history and current functioning. Reviewed vital signs,~Labs/ Radiology~and current medications noted below. Continue current treatment with the changes noted in the dictated addendum note Assessment: Vital Signs/I&O: Vital Signs Date Time Temp Pulse Resp B/P (MAP) Pulse Ox O2 Delivery O2 Flow Rate FiO2 03/10/19 15:38 98.0 72 18 131/79 (96) 94 03/10/19 05:06 Room Air I & O 03/09/19 03/09/19 03/10/19 15:00 23:00 07:00 Intake Total 600 ml 480 ml Balance 600 ml 480 ml Labs: Laboratory Tests Test 03/10/19 07:26 03/10/19 12:02 03/10/19 16:39 03/10/19 19:11 Glucose (Fingerstick) 121 mg/dL (70-99) H 73 mg/dL (70-99) 99 mg/dL (70-99) 178 mg/dL (70-99) H Current Medications: I have reviewed the current psychotropics carefully including drug interactions. Risk benefit ratio favors no change other than as noted in my dictated progress note. Diagnosis: Problems: (1) Chronic undifferentiated schizophrenia (2) Mild cognitive impairment (3) Schizoaffective disorder, mixed type (4) Anxiety disorder, unspecified (5) Bipolar disorder with psychotic features TYLOR MONACO MD Mar 10, 2019 20:48
[2019-03-10] MEDS: DONEPEZIL HCL 10 MG TABLET PO SCH (20:52)
[2019-03-10] MEDS: MIRTAZAPINE 7.5 MG TABLET. PO SCH (20:52)
[2019-03-10] MEDS: traZODone 100 MG TABLET. PO SCH (20:52)
[2019-03-11 05:34] VITALS: BP 146/82
[2019-03-11] MEDS: NICOTINE 14MG PATCH. TD SCH (09:00)
[2019-03-11] MEDS: FINASTERIDE 5 MG TABLET PO SCH (09:27)
[2019-03-11] MEDS: DOCUSATE SODIUM 100 MG CAPSULE PO SCH (09:27)
[2019-03-11] MEDS: carBAMazepine 200 MG TABLET PO SCH ×2 (09:27→20:24)
[2019-03-11] MEDS: METOPROLOL SUCC 24HR ER 25 MG TAB.ER.24H. PO SCH (09:28)
[2019-03-11] MEDS: OLANZapine 5 MG TABLET PO SCH ×2 (09:28→20:23)
[2019-03-11] MEDS: buPROPion XL 150 MG TAB.ER.24H PO SCH (09:28)
[2019-03-11] MEDS: SENNOSIDES 8.6 MG TABLET PO SCH (09:28)
[2019-03-11] MEDS: SERTRALINE 100 MG TABLET. PO SCH (09:28)
[2019-03-11] MEDS: TAMSULOSIN 0.4 MG CAP.ER.24H. PO SCH ×2 (09:28→20:24)
[2019-03-11] MEDS: INSULIN GLARGINE SYRINGE. SQ SCH ×2 (09:34→20:58)
[2019-03-11] MEDS: INSULIN LISPRO 300 UNITS/3 ML VIAL. SQ SCH ×3 (09:35→17:27)
[2019-03-11 16:12] VITALS: BP 170/78
[2019-03-11] MEDS: DONEPEZIL HCL 10 MG TABLET PO SCH (20:24)
[2019-03-11] MEDS: MIRTAZAPINE 7.5 MG TABLET. PO SCH (20:24)
[2019-03-11] MEDS: traZODone 100 MG TABLET. PO SCH (20:24)
--- NOTE | 2019-03-11 21:08 | PDOC ---
Exam Note: Shon Note: Please also refer to the separate dictated note~for this date of service dictated separately.~Patient seen individually. Discussed the patient with Nursing staff reviewed the chart.~Reviewed interim history and current functioning. Reviewed vital signs,~Labs/ Radiology~and current medications noted below. Continue current treatment with the changes noted in the dictated addendum note Assessment: Vital Signs/I&O: Vital Signs Date Time Temp Pulse Resp B/P (MAP) Pulse Ox O2 Delivery O2 Flow Rate FiO2 03/11/19 16:12 97.6 76 16 170/78 (108) 96 Room Air I & O 03/10/19 03/10/19 03/11/19 15:00 23:00 07:00 Intake Total 960 ml 480 ml 480 ml Balance 960 ml 480 ml 480 ml Labs: Laboratory Tests Test 03/11/19 07:31 03/11/19 11:52 03/11/19 17:11 03/11/19 19:18 Glucose (Fingerstick) 109 mg/dL (70-99) H 115 mg/dL (70-99) H 260 mg/dL (70-99) H 255 mg/dL (70-99) H Current Medications: I have reviewed the current psychotropics carefully including drug interactions. Risk benefit ratio favors no change other than as noted in my dictated progress note. Diagnosis: Problems: (1) Chronic undifferentiated schizophrenia (2) Mild cognitive impairment (3) Schizoaffective disorder, mixed type (4) Anxiety disorder, unspecified (5) Bipolar disorder with psychotic features TYLOR MONACO MD Mar 11, 2019 21:08
--- NOTE | 2019-03-12 00:53 | PN ---
DATE: 03/08/2019 PSYCHIATRIC PROGRESS NOTE This late entry 03/08/2019 covers elements not covered in my initial note. SUBJECTIVE: I met with the patient evening of 03/08/2019. Per DARCY Duval, the patient slept 6-3/4 hours previous night. Tegretol level repeat is 6.8. He does come to the dining room, otherwise withdrawn, met with him in his room at length. REVIEW OF SYSTEMS: No CV, , pulmonary, eye system symptoms on review. MENTAL STATUS EXAM: Oriented to himself and situation. Speech has some latency, coherent. Abstraction fair, computation impaired, language function intact, attention span short. Mood and affect withdrawn. He is still paranoid, but less so than before. LABORATORY DATA: Reviewed. IMPRESSION: Unchanged from initial note. PLAN: No change from initial note. Tegretol level is therapeutic. MAN Maggy MONACO MD DR: CHERELLE/kiko JOB#: [id number] / [id number]
--- NOTE | 2019-03-12 01:10 | PN ---
DATE: 03/09/2019 PSYCHIATRIC PROGRESS NOTE This late entry 03/09/2019 covers the elements not covered in my initial note. SUBJECTIVE: I met with the patient in the evening at length in his room. Per DARCY Bolton, the patient slept reasonably last night, but previous night, he was quite agitated, cursing at staff. During the day on 03/09/2019, he was better, took a nap after meals. REVIEW OF SYSTEMS: No CV, , pulmonary, eye system symptoms on review. MENTAL STATUS EXAM: Oriented to himself and situation. Speech has some latency, often responses monosyllabic. Abstraction fair, computation impaired, language function intact, attention span short. Mood and affect withdrawn. LABORATORY DATA: Reviewed. IMPRESSION: Unchanged from initial note. PLAN: No change from initial note. MAN Maggy MONACO MD DR: CHERELLE/kiko JOB#: [id number] / [id number]
[2019-03-12 04:48] VITALS: BP 166/74
[2019-03-12] MEDS: DOCUSATE SODIUM 100 MG CAPSULE PO SCH (08:44)
[2019-03-12] MEDS: SENNOSIDES 8.6 MG TABLET PO SCH (08:44)
[2019-03-12] MEDS: FINASTERIDE 5 MG TABLET PO SCH (08:44)
[2019-03-12] MEDS: METOPROLOL SUCC 24HR ER 25 MG TAB.ER.24H. PO SCH (08:44)
[2019-03-12] MEDS: TAMSULOSIN 0.4 MG CAP.ER.24H. PO SCH ×2 (08:44→20:44)
[2019-03-12] MEDS: carBAMazepine 200 MG TABLET PO SCH ×2 (08:44→20:45)
[2019-03-12] MEDS: OLANZapine 5 MG TABLET PO SCH ×2 (08:44→20:44)
[2019-03-12] MEDS: buPROPion XL 150 MG TAB.ER.24H PO SCH (08:44)
[2019-03-12] MEDS: SERTRALINE 100 MG TABLET. PO SCH (08:45)
[2019-03-12] MEDS: INSULIN GLARGINE SYRINGE. SQ SCH ×2 (08:51→20:47)
[2019-03-12] MEDS: INSULIN LISPRO 300 UNITS/3 ML VIAL. SQ SCH ×3 (08:51→17:08)
[2019-03-12] MEDS: NICOTINE 14MG PATCH. TD SCH (09:00)
--- NOTE | 2019-03-12 09:16 | PN ---
DATE: 03/11/2019 PSYCHIATRIC PROGRESS NOTE This late entry 03/11/2019 covers elements not covered in my initial note. SUBJECTIVE: I met with the patient evening of 03/11/2019. Per DARCY Booth, the patient slept 8 hours previous night. He has not had any PRNs. Seems less agitated, still withdrawn. REVIEW OF SYSTEMS: No CV, , pulmonary, eye system symptoms on review. MENTAL STATUS EXAM: Oriented to himself and situation. Speech has some latency, coherent. Abstraction fair, computation impaired, language function intact. Mood and affect somewhat withdrawn. LABORATORY DATA: Reviewed. IMPRESSION: Unchanged from initial note. PLAN: No change from initial note. TYLOR MONACO MD DR: CHERELLE/kiko JOB#: [id number] / [id number]
--- NOTE | 2019-03-12 10:01 | PN ---
DATE: 03/10/2019 1PSYCHIATRIC PROGRESS NOTE This late entry 03/10/2019 covers elements not covered in my initial note. SUBJECTIVE: I met with the patient in the evening of 03/10/2019. Per DARCY Noonan, the patient slept 5-1/2 hours previous night. He has been somewhat isolative. In the morning, he was demanding to leave, but then redirected. Seems less paranoid and anxious. REVIEW OF SYSTEMS: No CV, , pulmonary, eye system symptoms on review, does complain of being tired. MENTAL STATUS EXAM: Oriented to himself and situation. Speech has some latency, coherent, abstraction fair, computation impaired, language function intact. Mood and affect somewhat withdrawn. LABORATORY DATA: Reviewed. IMPRESSION: Unchanged from initial note. PLAN: No change from initial note. Tegretol level is therapeutic. Maintain Remeron, Wellbutrin, Tegretol, trazodone, Aricept, Haldol p.r.n., Zoloft. Adjust further as clinically indicated. TYLOR MONACO MD DR: CHERELLE/kiko JOB#: [id number] / [id number]
[2019-03-12 15:41] VITALS: BP 157/74
[2019-03-12] MEDS: traZODone 100 MG TABLET. PO SCH (20:44)
[2019-03-12] MEDS: MIRTAZAPINE 7.5 MG TABLET. PO SCH (20:44)
[2019-03-12] MEDS: DONEPEZIL HCL 10 MG TABLET PO SCH (20:45)
--- NOTE | 2019-03-12 20:56 | PDOC ---
Exam Note: Shon Note: Please also refer to the separate dictated note~for this date of service dictated separately.~Patient seen individually. Discussed the patient with Nursing staff reviewed the chart.~Reviewed interim history and current functioning. Reviewed vital signs,~Labs/ Radiology~and current medications noted below. Continue current treatment with the changes noted in the dictated addendum note Assessment: Vital Signs/I&O: Vital Signs Date Time Temp Pulse Resp B/P (MAP) Pulse Ox O2 Delivery O2 Flow Rate FiO2 03/12/19 15:41 98.0 74 18 157/74 (101) 95 03/12/19 04:48 Room Air I & O 03/11/19 03/11/19 03/12/19 15:00 23:00 07:00 Intake Total 360 ml 240 ml Balance 360 ml 240 ml Labs: Laboratory Tests Test 03/12/19 07:11 03/12/19 11:45 03/12/19 16:39 03/12/19 19:29 Glucose (Fingerstick) 91 mg/dL (70-99) 140 mg/dL (70-99) H 121 mg/dL (70-99) H 170 mg/dL (70-99) H Current Medications: I have reviewed the current psychotropics carefully including drug interactions. Risk benefit ratio favors no change other than as noted in my dictated progress note. Diagnosis: Problems: (1) Chronic undifferentiated schizophrenia (2) Mild cognitive impairment (3) Schizoaffective disorder, mixed type (4) Anxiety disorder, unspecified (5) Bipolar disorder with psychotic features TYLOR MONACO MD Mar 12, 2019 20:56
[2019-03-13 04:52] VITALS: BP 150/75
[2019-03-13 08:36] LABS: BASO % 1 % (0-3); EOS # 0.2 x10^3/uL (0.0-0.7); EOS % 4 % (0-3); HEMATOCRIT 35.9 % (39.0-53.0); HEMOGLOBIN 11.7 g/dL (13.0-17.5); LYMPH # 1.5 x10^3/uL (1.0-4.8); LYMPH % 27 % (24-48); MEAN CORPUSCULAR HEMOGLOBIN 29 pg (25-35); MEAN CORPUSCULAR HGB CONC 33 g/dL (31-37); MEAN CORPUSCULAR VOLUME 89 fL (79-100); MONO # 0.8 x10^3/uL (0.0-1.1); MONO % 14 % (0-9); NEUT # 3.1 x10^3uL (1.8-7.7); NEUT % 54 % (31-73); PLATELET COUNT 201 x10^3/uL (140-400); RED BLOOD COUNT 4.05 x10^6/uL (4.30-5.70); WHITE BLOOD COUNT 5.7 x10^3/uL (4.0-11.0)
[2019-03-13 08:50] LABS: ALBUMIN 2.8 g/dL (3.4-5.0); ALBUMIN/GLOBULIN RATIO 0.6 (1.0-1.7); CALCIUM 9.1 mg/dL (8.5-10.1); CREATININE 1.4 mg/dL (0.7-1.3); GFR 60.1; POTASSIUM 4.4 mmol/L (3.5-5.1); TOTAL BILIRUBIN 0.2 mg/dL (0.2-1.0); TOTAL PROTEIN 7.6 g/dL (6.4-8.2)
[2019-03-13] MEDS: carBAMazepine 200 MG TABLET PO SCH ×2 (10:30→21:34)
[2019-03-13] MEDS: NICOTINE 14MG PATCH. TD SCH (10:30)
[2019-03-13] MEDS: OLANZapine 5 MG TABLET PO SCH ×2 (10:30→21:34)
[2019-03-13] MEDS: DOCUSATE SODIUM 100 MG CAPSULE PO SCH (10:30)
[2019-03-13] MEDS: FINASTERIDE 5 MG TABLET PO SCH (10:31)
[2019-03-13] MEDS: buPROPion XL 150 MG TAB.ER.24H PO SCH (10:31)
[2019-03-13] MEDS: TAMSULOSIN 0.4 MG CAP.ER.24H. PO SCH ×2 (10:31→21:34)
[2019-03-13] MEDS: SENNOSIDES 8.6 MG TABLET PO SCH (10:31)
[2019-03-13] MEDS: METOPROLOL SUCC 24HR ER 25 MG TAB.ER.24H. PO SCH (10:31)
[2019-03-13] MEDS: SERTRALINE 100 MG TABLET. PO SCH (10:31)
[2019-03-13] MEDS: INSULIN GLARGINE SYRINGE. SQ SCH ×2 (10:36→21:00)
[2019-03-13] MEDS: INSULIN LISPRO 300 UNITS/3 ML VIAL. SQ SCH ×3 (10:36→17:24)
[2019-03-13 16:34] VITALS: BP 150/70
--- NOTE | 2019-03-13 21:19 | PDOC ---
Exam Note: Shon Note: Please also refer to the separate dictated note~for this date of service dictated separately.~Patient seen individually. Discussed the patient with Nursing staff reviewed the chart.~Reviewed interim history and current functioning. Reviewed vital signs,~Labs/ Radiology~and current medications noted below. Continue current treatment with the changes noted in the dictated addendum note Assessment: Vital Signs/I&O: Vital Signs Date Time Temp Pulse Resp B/P (MAP) Pulse Ox O2 Delivery O2 Flow Rate FiO2 03/13/19 16:34 97.0 87 20 150/70 (96) 97 03/12/19 04:48 Room Air I & O 03/12/19 03/12/19 03/13/19 15:00 23:00 07:00 Intake Total 600 ml 480 ml Balance 600 ml 480 ml Labs: Laboratory Tests Test 03/13/19 07:42 03/13/19 07:53 03/13/19 11:56 03/13/19 16:25 Glucose (Fingerstick) 126 mg/dL (70-99) H 160 mg/dL (70-99) H 94 mg/dL (70-99) White Blood Count 5.7 x10^3/uL (4.0-11.0) Red Blood Count 4.05 x10^6/uL (4.30-5.70) L Hemoglobin 11.7 g/dL (13.0-17.5) L Hematocrit 35.9 % (39.0-53.0) L Mean Corpuscular Volume 89 fL (79-100) Mean Corpuscular Hemoglobin 29 pg (25-35) Mean Corpuscular Hemoglobin Concent 33 g/dL (31-37) Red Cell Distribution Width 14.0 % (11.5-14.5) Platelet Count 201 x10^3/uL (140-400) Neutrophils (%) (Auto) 54 % (31-73) Lymphocytes (%) (Auto) 27 % (24-48) Monocytes (%) (Auto) 14 % (0-9) H Eosinophils (%) (Auto) 4 % (0-3) H Basophils (%) (Auto) 1 % (0-3) Neutrophils # (Auto) 3.1 x10^3uL (1.8-7.7) Lymphocytes # (Auto) 1.5 x10^3/uL (1.0-4.8) Monocytes # (Auto) 0.8 x10^3/uL (0.0-1.1) Eosinophils # (Auto) 0.2 x10^3/uL (0.0-0.7) Basophils # (Auto) 0.0 x10^3/uL (0.0-0.2) Sodium Level 142 mmol/L (136-145) Potassium Level 4.4 mmol/L (3.5-5.1) Chloride Level 106 mmol/L (98-107) Carbon Dioxide Level 30 mmol/L (21-32) Anion Gap 6 (6-14) Blood Urea Nitrogen 19 mg/dL (8-26) Creatinine 1.4 mg/dL (0.7-1.3) H Estimated GFR (Cockcroft-Gault) 60.1 BUN/Creatinine Ratio 14 (6-20) Glucose Level 126 mg/dL (70-99) H Calcium Level 9.1 mg/dL (8.5-10.1) Total Bilirubin 0.2 mg/dL (0.2-1.0) Aspartate Amino Transferase (AST) 19 U/L (15-37) Alanine Aminotransferase (ALT) 17 U/L (16-63) Alkaline Phosphatase 107 U/L (46-116) Total Protein 7.6 g/dL (6.4-8.2) Albumin 2.8 g/dL (3.4-5.0) L Albumin/Globulin Ratio 0.6 (1.0-1.7) L Test 03/13/19 19:14 Glucose (Fingerstick) 74 mg/dL (70-99) Current Medications: I have reviewed the current psychotropics carefully including drug interactions. Risk benefit ratio favors no change other than as noted in my dictated progress note. Diagnosis: Problems: (1) Chronic undifferentiated schizophrenia (2) Mild cognitive impairment (3) Schizoaffective disorder, mixed type (4) Anxiety disorder, unspecified (5) Bipolar disorder with psychotic features TYLOR MONACO MD Mar 13, 2019 21:19
[2019-03-13] MEDS: DONEPEZIL HCL 10 MG TABLET PO SCH (21:34)
[2019-03-13] MEDS: MIRTAZAPINE 7.5 MG TABLET. PO SCH (21:34)
[2019-03-13] MEDS: traZODone 100 MG TABLET. PO SCH (21:34)
[2019-03-14 04:56] VITALS: BP 148/79
[2019-03-14] MEDS: TAMSULOSIN 0.4 MG CAP.ER.24H. PO SCH ×2 (09:14→21:02)
[2019-03-14] MEDS: FINASTERIDE 5 MG TABLET PO SCH (09:14)
[2019-03-14] MEDS: SENNOSIDES 8.6 MG TABLET PO SCH (09:14)
[2019-03-14] MEDS: DOCUSATE SODIUM 100 MG CAPSULE PO SCH (09:14)
[2019-03-14] MEDS: METOPROLOL SUCC 24HR ER 25 MG TAB.ER.24H. PO SCH (09:15)
[2019-03-14] MEDS: carBAMazepine 200 MG TABLET PO SCH ×2 (09:15→21:02)
[2019-03-14] MEDS: SERTRALINE 100 MG TABLET. PO SCH (09:15)
[2019-03-14] MEDS: buPROPion XL 150 MG TAB.ER.24H PO SCH (09:15)
[2019-03-14] MEDS: OLANZapine 5 MG TABLET PO SCH ×2 (09:15→21:02)
[2019-03-14] MEDS: NICOTINE 14MG PATCH. TD SCH (09:16)
[2019-03-14] MEDS: INSULIN GLARGINE SYRINGE. SQ SCH ×2 (09:17→21:06)
[2019-03-14] MEDS: INSULIN LISPRO 300 UNITS/3 ML VIAL. SQ SCH ×3 (09:17→17:19)
[2019-03-14 15:46] VITALS: BP 151/67
--- NOTE | 2019-03-14 20:40 | PDOC ---
Exam Note: Shon Note: Please also refer to the separate dictated note~for this date of service dictated separately.~Patient seen individually. Discussed the patient with Nursing staff reviewed the chart.~Reviewed interim history and current functioning. Reviewed vital signs,~Labs/ Radiology~and current medications noted below. Continue current treatment with the changes noted in the dictated addendum note Assessment: Vital Signs/I&O: Vital Signs Date Time Temp Pulse Resp B/P (MAP) Pulse Ox O2 Delivery O2 Flow Rate FiO2 03/14/19 15:46 97.9 81 16 151/67 (95) 95 03/12/19 04:48 Room Air I & O 03/13/19 03/13/19 03/14/19 15:00 23:00 07:00 Intake Total 1080 ml 360 ml Balance 1080 ml 360 ml Labs: Laboratory Tests Test 03/14/19 07:53 03/14/19 11:46 03/14/19 16:32 03/14/19 19:17 Glucose (Fingerstick) 139 mg/dL (70-99) H 162 mg/dL (70-99) H 115 mg/dL (70-99) H 146 mg/dL (70-99) H Current Medications: I have reviewed the current psychotropics carefully including drug interactions. Risk benefit ratio favors no change other than as noted in my dictated progress note. Diagnosis: Problems: (1) Chronic undifferentiated schizophrenia (2) Mild cognitive impairment (3) Schizoaffective disorder, mixed type (4) Anxiety disorder, unspecified (5) Bipolar disorder with psychotic features TYLOR MONACO MD Mar 14, 2019 20:40
[2019-03-14] MEDS: DONEPEZIL HCL 10 MG TABLET PO SCH (21:02)
[2019-03-14] MEDS: traZODone 100 MG TABLET. PO SCH (21:02)
[2019-03-14] MEDS: MIRTAZAPINE 7.5 MG TABLET. PO SCH (21:02)
--- NOTE | 2019-03-14 23:45 | PN ---
DATE: 03/12/2019 PSYCHIATRIC PROGRESS NOTE. This late entry of 03/12/2019 covers the elements not covered in my initial note. SUBJECTIVE: I met with the patient in the evening of 03/12/2019 and staffed at a treatment team meeting earlier in the day on 03/12/2019. Overall, the patient remains somewhat withdrawn, less psychotic. No aggression. The facility he came from refused to take him back and he may have to go to [facility] Addressed this with Social Service staff. REVIEW OF SYSTEMS: No CV, , pulmonary, eye system symptoms on review. Complains of being tired. MENTAL STATUS EXAM: Oriented to himself and situation. Speech moderate latency, often responses monosyllabic. Abstraction fair, computation impaired, language function intact, attention span short. Mood and affect withdrawn. LABORATORY DATA: Reviewed. IMPRESSION: Schizoaffective disorder, bipolar type, mixed with psychotic features, in partial remission. Rest unchanged. PLAN: Continue psychotropics from initial note. Adjust as clinically indicated. MAN Maggy MONACO MD DR: CHERELLE/kiko JOB#: [id number] / [id number]
--- NOTE | 2019-03-14 23:48 | PN ---
DATE: 03/13/2019 PSYCHIATRIC PROGRESS NOTE This late entry 03/13/2019 covers elements not covered in my initial note. SUBJECTIVE: I met with the patient evening of 03/13/2019. Overall, the patient remains somewhat withdrawn, slept 6 hours previous night, less agitated, less paranoid. REVIEW OF SYSTEMS: No CV, , pulmonary, eye system symptoms on review, does complain of tiredness. MENTAL STATUS EXAM: Oriented to himself and situation. Speech is coherent, abstraction fair, computation impaired, language function intact, attention span short. Mood and affect withdrawn. LABORATORY DATA: Reviewed. IMPRESSION: Unchanged from initial note. PLAN: No change from initial note. Tegretol level is therapeutic at 6.8. Maintain Tegretol, Haldol, p.r.n. Aricept, Zyprexa, scheduled Zoloft, trazodone, Wellbutrin and Remeron. MAN Maggy MONACO MD DR: CHERELLE/kiko JOB#: [id number] / [id number]
[2019-03-15 05:52] VITALS: BP 145/71
[2019-03-15] MEDS: TAMSULOSIN 0.4 MG CAP.ER.24H. PO SCH ×2 (09:07→20:15)
[2019-03-15] MEDS: NICOTINE 14MG PATCH. TD SCH (09:07)
[2019-03-15] MEDS: METOPROLOL SUCC 24HR ER 25 MG TAB.ER.24H. PO SCH (09:07)
[2019-03-15] MEDS: DOCUSATE SODIUM 100 MG CAPSULE PO SCH (09:07)
[2019-03-15] MEDS: OLANZapine 5 MG TABLET PO SCH (09:07)
[2019-03-15] MEDS: FINASTERIDE 5 MG TABLET PO SCH (09:07)
[2019-03-15] MEDS: buPROPion XL 150 MG TAB.ER.24H PO SCH (09:07)
[2019-03-15] MEDS: SENNOSIDES 8.6 MG TABLET PO SCH (09:08)
[2019-03-15] MEDS: carBAMazepine 200 MG TABLET PO SCH ×2 (09:08→20:15)
[2019-03-15] MEDS: SERTRALINE 100 MG TABLET. PO SCH (09:08)
[2019-03-15] MEDS: INSULIN LISPRO 300 UNITS/3 ML VIAL. SQ SCH ×3 (09:09→17:18)
[2019-03-15] MEDS: INSULIN GLARGINE SYRINGE. SQ SCH ×2 (09:09→20:20)
[2019-03-15 15:49] VITALS: BP 197/99
[2019-03-15] MEDS: traZODone 100 MG TABLET. PO SCH (20:15)
[2019-03-15] MEDS: MIRTAZAPINE 7.5 MG TABLET. PO SCH (20:15)
[2019-03-15] MEDS: DONEPEZIL HCL 10 MG TABLET PO SCH (20:15)
[2019-03-15 20:42] VITALS: BP 157/71
--- NOTE | 2019-03-15 20:44 | PDOC ---
Exam Note: Shon Note: Please also refer to the separate dictated note~for this date of service dictated separately.~Patient seen individually. Discussed the patient with Nursing staff reviewed the chart.~Reviewed interim history and current functioning. Reviewed vital signs,~Labs/ Radiology~and current medications noted below. Continue current treatment with the changes noted in the dictated addendum note Assessment: Vital Signs/I&O: Vital Signs Date Time Temp Pulse Resp B/P (MAP) Pulse Ox O2 Delivery O2 Flow Rate FiO2 03/15/19 20:42 75 157/71 (99) 03/15/19 15:49 97.2 16 98 03/12/19 04:48 Room Air I & O 03/14/19 03/14/19 03/15/19 14:59 22:59 06:59 Intake Total 840 ml 600 ml Balance 840 ml 600 ml Labs: Laboratory Tests Test 03/15/19 07:29 03/15/19 11:47 03/15/19 17:08 03/15/19 19:24 Glucose (Fingerstick) 137 mg/dL (70-99) H 52 mg/dL (70-99) L 130 mg/dL (70-99) H 158 mg/dL (70-99) H Current Medications: Meds: Current Medications Medications (Trade) Dose Ordered Sig/Deb Route PRN Reason Start Time Stop Time Status Last Admin Dose Admin Olanzapine (ZyPREXA) 7.5 mg QHS PO 03/15/19 21:00 03/15/19 20:17 I have reviewed the current psychotropics carefully including drug interactions. Risk benefit ratio favors no change other than as noted in my dictated progress note. Diagnosis: Problems: (1) Chronic undifferentiated schizophrenia (2) Mild cognitive impairment (3) Schizoaffective disorder, mixed type (4) Anxiety disorder, unspecified (5) Bipolar disorder with psychotic features TYLOR MONACO MD Mar 15, 2019 20:44
[2019-03-15] MEDS ORDERED: OLANZapine 2.5 MG TABLET PO SCH (21:00)
--- NOTE | 2019-03-15 21:53 | PN ---
DATE: 03/14/2019 PSYCHIATRIC PROGRESS NOTE This late entry, 03/14/2019, covers elements not covered in my initial note. SUBJECTIVE: I met with the patient evening of 03/14/2019. The patient slept 5-1/4 hours previous night. He remains somewhat isolative; at times, obsessive about discharge and I addressed this with him at some length. He is less paranoid. REVIEW OF SYSTEMS: No CV, , pulmonary, eye system symptoms on review. Reliability varies. MENTAL STATUS EXAM: Oriented to himself and situation. Speech is coherent, has some latency. Abstraction fair. Computation impaired. Language function intact. Attention span short. He appears less psychotic. No suicidal or homicidal ideation. He ambulates with a walker. LABORATORY DATA: Reviewed. IMPRESSION: Unchanged from initial note. PLAN: Continue Aricept 10 mg a day; Zoloft 150 mg a day; Tegretol 200 mg b.i.d., level is 6.8; trazodone 100 mg at bedtime; Wellbutrin XL 150 mg a day and Remeron 7.5 mg p.o. daily. MAN Maggy MONACO MD DR: CHERELLE/kiko JOB#: [id number] / [id number]
[2019-03-16 05:41] VITALS: BP 145/76
[2019-03-16] MEDS ORDERED: OLANZapine 5 MG TABLET PO SCH (09:00)
[2019-03-16] MEDS: FINASTERIDE 5 MG TABLET PO SCH (09:29)
[2019-03-16] MEDS: TAMSULOSIN 0.4 MG CAP.ER.24H. PO SCH (09:30)
[2019-03-16] MEDS: carBAMazepine 200 MG TABLET PO SCH (09:30)
[2019-03-16] MEDS: DOCUSATE SODIUM 100 MG CAPSULE PO SCH (09:30)
[2019-03-16] MEDS: METOPROLOL SUCC 24HR ER 25 MG TAB.ER.24H. PO SCH (09:30)
[2019-03-16] MEDS: buPROPion XL 150 MG TAB.ER.24H PO SCH (09:31)
[2019-03-16] MEDS: SERTRALINE 100 MG TABLET. PO SCH (09:31)
[2019-03-16] MEDS: SENNOSIDES 8.6 MG TABLET PO SCH (09:32)
[2019-03-16] MEDS: NICOTINE 14MG PATCH. TD SCH (09:33)
[2019-03-16] MEDS: INSULIN GLARGINE SYRINGE. SQ SCH (09:37)
[2019-03-16] MEDS: INSULIN LISPRO 300 UNITS/3 ML VIAL. SQ SCH ×2 (09:38→13:08)
[2019-03-16] MEDS ORDERED: OLAN5TAB9 PO (12:34)
[2019-03-16 15:33] VITALS: BP 122/79
--- NOTE | 2019-03-16 18:43 | DS ---
DATE OF DISCHARGE: 03/16/2019 This note covers elements not covered in my initial note of 03/16/2019. REASON FOR ADMISSION: Please refer to the admission history for details. Briefly, the patient is a 73-year-old -[place] male referred to us from the [facility] where he presented from the nursing facility on account of worsening delusions, being grandiose, agitated, verbally aggressive. He was unmanageable at the facility. Behaviors were deemed dangerous. He presented to the [facility] and then referred to us for psychiatric stabilization for his schizophrenia, chronic paranoid type with acute exacerbation. SIGNIFICANT FINDINGS AND CLINICAL COURSE: Following admission, the patient was seen daily individually by myself from a psychiatric standpoint, medical followup with Dr. Acevedo. The patient was quite paranoid, delusional, extremely obsessed about wanting to be discharged. Adjustments were made in his psychotropics. He seemed to respond to a combination of Aricept 10 mg at bedtime, Haldol 5 mg q. 4 hours p.r.n. psychosis, Zyprexa 5 mg a.m., 7.5 mg at bedtime, Zoloft 150 mg a day, trazodone 100 mg at bedtime. Depakote could not be used as a mood stabilizer given his hepatitis C status and potential liver damage from the Depakote and he was started on Tegretol and adjusted to 200 mg b.i.d. with a level of 6.8 therapeutic, Zyprexa was used p.r.n., Wellbutrin-XL 150 mg daily, Remeron 7.5 mg at bedtime. Overall, gradually patient's mood appeared to improve. He was less paranoid, less obsessive, anxious, less agitated. REVIEW OF SYSTEMS: Prior to discharge on 03/16/2019, ambulation impaired with walker. No CV, , pulmonary, eye, ENT system symptoms on review. Reliability varies. MENTAL STATUS EXAM: Oriented to himself and situation. Speech coherent, a little pressured at times, but better. Abstraction fair, computation impaired, language function intact. Mood and affect is improved. He was much less paranoid. CONDITION AT DISCHARGE: Improved. FINAL DIAGNOSES: Schizophrenia, chronic paranoid type with acute exacerbation, in partial remission; anxiety disorder, unspecified; schizoaffective disorder, bipolar type, mixed with psychotic features, in partial remission, impulse control disorder, improved. Rest diagnosis unchanged from admission. DISCHARGE MEDICATIONS: Please refer to the [facility]. He should have a followup CBC, CMP, Tegretol level every 60 days to monitor the Tegretol. I leave this to his treating physician to decide as an outpatient. Time for discharge day management greater than 30 minutes. Outpatient psychiatric and medical followup at the correction. TYLOR MONACO MD DR: CHERELLE/kiko JOB#: [id number] / [id number]
--- NOTE | 2019-03-16 20:57 | PDOC ---
Exam Note: Shon Note: Please also refer to the separate dictated note~for this date of service dictated separately.~Patient seen individually. Discussed the patient with Nursing staff reviewed the chart.~Reviewed interim history and current functioning. Reviewed vital signs,~Labs/ Radiology~and current medications noted below. Continue current treatment with the changes noted in the dictated addendum note Assessment: Vital Signs/I&O: Vital Signs Date Time Temp Pulse Resp B/P (MAP) Pulse Ox O2 Delivery O2 Flow Rate FiO2 03/16/19 15:33 97.5 73 16 122/79 (93) 99 03/12/19 04:48 Room Air I & O 03/15/19 03/15/19 03/16/19 15:00 23:00 07:00 Intake Total 360 ml 360 ml Balance 360 ml 360 ml Labs: Laboratory Tests Test 03/16/19 07:27 03/16/19 12:09 Glucose (Fingerstick) 128 mg/dL (70-99) H 60 mg/dL (70-99) L Current Medications: Meds: Current Medications Medications (Trade) Dose Ordered Sig/Deb Route PRN Reason Start Time Stop Time Status Last Admin Dose Admin Olanzapine (ZyPREXA) 5 mg DAILY PO 03/16/19 09:00 03/16/19 17:19 DC 03/16/19 09:30 Olanzapine (ZyPREXA) 7.5 mg QHS PO 03/15/19 21:00 03/16/19 17:19 DC 03/15/19 20:17 I have reviewed the current psychotropics carefully including drug interactions. Risk benefit ratio favors no change other than as noted in my dictated progress note. Diagnosis: Problems: (1) Chronic undifferentiated schizophrenia (2) Mild cognitive impairment (3) Schizoaffective disorder, mixed type (4) Anxiety disorder, unspecified (5) Bipolar disorder with psychotic features (6) Schizo affective schizophrenia TYLOR MONACO MD Mar 16, 2019 20:57
--- NOTE | 2019-03-16 22:23 | PN ---
DATE: 03/15/2019 PSYCHIATRIC PROGRESS NOTE This late entry 03/15/2019 covers elements not covered in my initial note. SUBJECTIVE: I met with the patient evening of 03/15/2019. The patient slept 4-1/2 hours per DARCY Carroll. He has been a little more obsessive and once again asking to leave, anxious. REVIEW OF SYSTEMS: No CV, , pulmonary, eye system symptoms on review. MENTAL STATUS EXAM: Oriented to himself and situation, ambulates with a walker. Speech coherent. Has some latency. Abstraction fair, computation impaired, language function intact, attention span short. Mood and affect less labile, less withdrawn. LABORATORY DATA: Reviewed. He is still paranoid. IMPRESSION: Schizophrenia, chronic and paranoid with acute exacerbation, in partial remission. PLAN: Continue psychotropics, but increase Zyprexa from 5 mg b.i.d. to 5 mg a.m., 7.5 mg at bedtime. Rest unchanged for now. TYLOR MONACO MD DR: CHERELLE/kiko JOB#: [id number] / [id number]
== END 2019-03-16 16:20 | DRG 885 ==
LOC: GEROPSY 18:56
PROVIDERS: ADMIT Psychiatry & Neurology Psychiatry; ATTEND Psychiatry & Neurology Psychiatry
DX: F25.0 Schizoaffective disorder, bipolar type (principal); B18.2 Chronic viral hepatitis C; D64.9 Anemia, unspecified; E11.22 Type 2 diabetes mellitus with diabetic chronic kidney disease; E11.65 Type 2 diabetes mellitus with hyperglycemia; E78.5 Hyperlipidemia, unspecified; F63.9 Impulse disorder, unspecified; G31.84 Mild cognitive impairment of uncertain or unknown etiology; F41.8 Other specified anxiety disorders; I12.9 Hypertensive chronic kidney disease with stage 1 through stage 4 chronic kidney disease, or unspecified chronic kidney disease; J44.9 Chronic obstructive pulmonary disease, unspecified; N18.3 Chronic kidney disease, stage 3 (moderate); N40.0 Benign prostatic hyperplasia without lower urinary tract symptoms; Z79.899 Other long term (current) drug therapy; Z91.83 Wandering in diseases classified elsewhere
CPT/HCPCS: 36415; 80053; 80061; 80156; 81001; 82306; 82607; 82947; 83036; 83540; 83550; 83735; 84436; 84443; 84480; 85025; 86592; 90471; 90686; 93005; 99406; J1650; J1815; 97110; 97116; 97530